=== PATIENT | female | born 1960 | race Caucasian/White ===

== ENCOUNTER 2017-02-06 16:55 | Emergency (ER) | payer OTHER ==
--- NOTE | 2017-02-06 20:40 | ED NURSING NOTES ---
Clinical Report - Nurses [place] [address] [place] [address] 02/06/2017 16:59 Patient: ROSEMARIE ORNELAS TRIAGE Triage time 17:30 Feb 06 2017. Acuity: LEVEL 3. Chief Complaint: RIGHT LOWER EXTREMITY SWELLING and REDNESS. LEFT LOWER EXTREMITY SWELLING and REDNESS. ISACC COMA SCORE: Isacc Coma Scale: 15- eyes open spontaneously (4); best verbal response- oriented x 4 (5); best motor response- obeys commands (6). --17:55 Jessica Euceda R.N. 17:54 02/06/17. BP: 134/76. HR: 93. RR: 20. O2 saturation: 97%. Temp: 98 F. Pain level now 4/10. --17:55 Jessica Euceda R.N. Weight: 79.3 kg stated. Height/Length: 61 inches Per Patient. BMI: 33. --17:53 Jessica Euceda R.N. Medications Estradiol Transdermal. --17:34 Jessica Euceda R.N. DULoxetine HCl Oral. --17:34 Jessica Euceda R.N. Amphetamine-DEXTROAMPHETAMINE Oral. --17:35 Jessica Euceda R.N. Albuterol Sulfate HFA Inhalation. --17:35 Jessica Euceda R.N. MetFORMIN HCl Oral. --17:39 Jessica Euceda R.N. Levothyroxine Sodium Oral. --17:39 Jessica Euceda R.N. Minocycline HCl ER Oral. --17:39 Jessica Euceda R.N. TraZODone HCl Oral. --17:39 Jessica Euceda R.N. Buprenorphine HCl-Naloxone HCl Sublingual. --17:40 Jessica Euceda R.N. Cholecalciferol Oral. --17:40 Jessica Euceda R.N. Calcium & Magnesium Carbonates Oral. --17:40 Jessica Euceda R.N. Polyethylene Glycol 3350 Oral. --17:41 Jessica Euceda R.N. Bisacodyl EC Oral. --17:41 Jessica Euceda R.N. ALPRAZolam Oral. --17:42 Jessica Euceda R.N. Minocycline Hcl Oral. --17:43 Jessica Euceda R.N. Hydroxychloroquine Sulfate Oral. --17:43 Jessica Euceda R.N. Ivermectin Oral. --17:44 Jessica Euceda R.N. Temazepam Oral. --17:44 Jessica Euceda R.N. ValACYclovir HCl Oral. --17:45 Jessica Euceda R.N. Venlafaxine HCl Oral. --17:45 Jessica Euceda R.N. BuPROPion HBr Oral. --17:46 Jessica Euceda R.N. TiZANidine HCl Oral. --17:46 Jessica Euceda R.N. Allergies No Known Drug Allergy. --17:46 Jessica Euceda R.N. History Arrived by private vehicle. Historian: patient. Accompanied by family. No injury occurred. This occurred (2 weeks). ( Patient started taking suboxone 16 mg twice a day two weeks ago and is having confusion, swelling of the legs, falling, headaches, sleep walking, dizziness, hearing noises that are not there.). She has had swelling, redness, fever and trouble walking. No difficulty breathing, skin rash, itching or weakness. PAST MEDICAL HX: Tetanus status: unknown. Immunizations: up-to-date. The patient has had a hysterectomy. SOCIAL HX: Former smoker, end date 1979. Occasional alcohol use. No drug use. SELF HARM ASSESSMENT: A self harm assessment was performed. The patient answered "yes" to the question "Have you recently felt down, depressed, or hopeless?" and "no" to the question "Do you have thoughts of harming or killing yourself?". FALL RISK ASSESSMENT: Fall risk assessment completed. No fall risk identified. NUTRITIONAL RISK ASSESSMENT: The nutritional risk assessment revealed no deficiencies. FUNCTIONAL ASSESSMENT: Functional assessment: no impairments noted. LEARNING NEEDS ASSESSMENT: The learning needs assessment revealed no barriers. ABUSE ASSESSMENT: Abuse assessment: (yes) The patient was asked "Do you feel safe in your home?". SKIN INTEGRITY ASSESSMENT: Skin integrity risk assessment completed. No skin integrity risk identified. --17:55 Jessica Euceda R.N. PROBLEMS: Fibromyalgia. Hepatitis. Tremor. Depression . Grief Reaction. Headache. Fall. Insomnia. Sleep Apnea. Diabetes Mellitus. --17:51 Jessica Euceda R.N. Sleep walking disorder. --19:10 Les Mares R.N. ADDITIONAL SURGERIES: . Foot surgery . Hysterectomy. --17:51 Jessica Euceda R.N. Interventions ID band on patient. --17:55 Jessica Euceda R.N. PHYSICAL ASSESSMENT Ambulatory to room. GENERAL / NEURO / PSYCH: Oriented X 4. Alert. Appears in no acute distress. EXTREMITIES: Non-pitting edema of the lower extremities. Extremity pulses are within normal limits. Extremities exhibit normal ROM. Neuro-vascular status intact to the extremity. Normal gait. Right leg: swelling. Right foot: swelling. Left leg: swelling. Left foot: tenderness and swelling. SKIN: Skin intact. Skin is warm and dry. --17:57 Jessica Euceda R.N. 19:10 02/06/17. BP: 125/66. HR: 96. O2 saturation: 94% on room air. --19:11 Les Mares R.N. NURSING PROGRESS NOTES The initial plan of care for this patient includes an assessment with efforts to address patient positioning and appropriate ambient lighting; impairment of the integumentary system. Pulse oximeter and NIBP monitor placed on patient. Reassurance given. Call light placed in reach. Side rails up x 1. Bed placed in lowest position. --17:58 Jessica Euceda R.N. 18:42 02/06/2017 Site #1 started via IV in the right forearm with an 20g angiocath, with aseptic technique; one attempt. Blood drawn: rainbow set. Labeled in the presence of the patient and sent to the lab. Saline lock flushed with 10 mL saline. --18:42 Jessica Euceda R.N. ( Report received from Jessica Reddy RN). --19:18 Les Mares R.N. Patient gowned. Reassurance given. GENERAL / NEURO / PSYCH: Alert. Oriented X 4. RESPIRATORY: No respiratory distress. SKIN: Skin is warm and dry. Two patient identifiers checked. Call light placed in reach. Side rails up x 1. Bed placed in lowest position. Brakes of bed on. ( Patient has bilateral calf edema and redness. Calm, plesent, conversant and reading a electronic tablet, esl teacher at bedside). --19:32 Les Mares R.N. 19:32 02/06/17. Pain level now: 04/01. --19:32 Les Mares R.N. 20:53 02/06/2017 Started 1 gm of Ceftriaxone IVPB in bag #1 50 mL; at 150 mL/hr over 20 minute(s) via site #1 via IV pump. Allergies verified and confirmed 5 rights. IV patency established. IV site checked: no pain, redness, or swelling. IV flushed thoroughly pre- and post-medication administration. --20:53 Joanne Crabtree R.N. 21:12 02/06/2017 Ceftriaxone IVPB Discontinued: completed. IV patency established. IV site checked: no pain, redness, or swelling. IV flushed thoroughly. --21:12 Les Mares R.N. DISPOSITION / DISCHARGE 21:11 02/06/2017 Site #1 removed upon discharge. Manual pressure and bandaid applied. --21:21 Les Mares R.N. Condition at departure: stable. The goals identified in the patient's plan of care were met. No learning barriers present. Discharge instructions provided and reviewed with the patient and spouse. Reviewed warnings. Reviewed medication(s) side effects, precautions, dosing and course information. Prescription(s) given to the patient. Treatments reviewed. Reviewed referrals for followup. Patient and spouse verbalized understanding. Written instructions provided in [place]an. The patient was discharged home and accompanied by spouse. She left the Emergency Department ambulatory and via private vehicle. Spouse driving. --21:22 Les Mares R.N. 21:19 02/06/17. BP: 135/64. HR: 99. RR: 18 (unlabored). O2 saturation: 95% on room air. Pain level now: 03/02. --21:22 Les Mares R.N. Locked/Released at 02/06/2017 21:23 by Les Mares R.N.
--- NOTE | 2017-02-06 20:40 | ED ORDER SUMMARY ---
..... Patient: ROSEMARIE ORNELAS OrderSheet [facility] VisitID: [id number] [place] [address] 56y, F Registration Date/Time: 02/06/2017 ORDER SHEET Weight: 79.3 kg (stated) Allergies: No Known Drug Allergy GENERAL ORDERS: CBC w Diff Urgent (17:48 02/06/2017 HBivens A.R.N.P.) (Ack 18:29 RKaruga) (19:12 DDavis R.N.) CMP Urgent (17:48 02/06/2017 HBivens A.R.N.P.) (Ack 18:29 RKaruga) (19:12 DDavis R.N.) D-Dimer Urgent (17:48 02/06/2017 HBivens A.R.N.P.) (Ack 18:29 RKaruga) (19:12 DDavis R.N.) Lactate, Serum Urgent (17:48 02/06/2017 HBivens A.R.N.P.) (Ack 18:29 RKaruga) (20:40 IJurca ER Tech1) PCT (Procalcitonin) Urgent (17:48 02/06/2017 HBivens A.R.N.P.) (Ack 18:29 RKaruga) (20:40 IJurca ER Tech1) MEDICATION ORDERS: IV FLUIDS: IV Saline Lock (17:48 02/06/2017 HBivens A.R.N.P.) (18:42 LWhalen R.N.) Ceftriaxone IV 1 gm/50mL (NOW) (20:23 02/06/2017 HBivens A.R.N.P.) (Ack 20:44 MWinterer R.N.) (20:53 MWinterer R.N.) ORDER SHEET NOTES: [Electronically signed by Les Mares R.N. (21:02/06/2017)] [Electronically signed by Adelita DuranR.N.P. (23:02/06/2017)] [Electronically locked/signed by Les Mares R.N. (:02/06/2017)]
--- NOTE | 2017-02-06 20:40 | ED ORDER SUMMARY ---
..... Patient: ROSEMARIE ORNELAS OrderSheet [facility] VisitID: [id number] [place] [address] 56y, F Registration Date/Time: 02/06/2017 ORDER SHEET Weight: 79.3 kg (stated) Allergies: No Known Drug Allergy GENERAL ORDERS: CBC w Diff Urgent (17:48 02/06/2017 HBivens A.R.N.P.) (Ack 18:29 RKaruga) (19:12 DDavis R.N.) CMP Urgent (17:48 02/06/2017 HBivens A.R.N.P.) (Ack 18:29 RKaruga) (19:12 DDavis R.N.) D-Dimer Urgent (17:48 02/06/2017 HBivens A.R.N.P.) (Ack 18:29 RKaruga) (19:12 DDavis R.N.) Lactate, Serum Urgent (17:48 02/06/2017 HBivens A.R.N.P.) (Ack 18:29 RKaruga) (20:40 IJurca ER Tech1) PCT (Procalcitonin) Urgent (17:48 02/06/2017 HBivens A.R.N.P.) (Ack 18:29 RKaruga) (20:40 IJurca ER Tech1) MEDICATION ORDERS: IV FLUIDS: IV Saline Lock (17:48 02/06/2017 HBivens A.R.N.P.) (18:42 LWhalen R.N.) Ceftriaxone IV 1 gm/50mL (NOW) (20:23 02/06/2017 HBivens A.R.N.P.) (Ack 20:44 MWinterer R.N.) (20:53 MWinterer R.N.) ORDER SHEET NOTES: [Electronically signed by Les Mares R.N. (21:02/06/2017)] [Electronically signed by Adelita DuranR.N.P. (23:02/06/2017)] [Electronically locked/signed by Les Mares R.N. (:02/06/2017)]
--- NOTE | 2017-02-06 20:40 | ED CLINICAL REPORT ---
Clinical Report - Physicians/Mid Levels [facility] [address] [place] [address] 02/06/2017 16:59 Patient: ROSEMARIE ORNELAS Time Seen: 1733; upon arrival, initial patient contact, initial documentation, patient care assumed. Arrived- By private vehicle. Historian- patient and spouse. HISTORY OF PRESENT ILLNESS Chief Complaint: LOWER EXTREMITY PAIN and SWELLING. Not relieved by anything- worsened by walking. Severity is described as being severe. The quality is noted to be "pain" and similar to prior episodes. No radiation. This started about 2 weeks ago and is still present. Symptoms located in the area of the right ankle, right leg, right foot, left leg, left foot and left ankle. The patient has had severe redness. No red streaking. She has had new onset of localized moderate swelling of the right lower leg, moderate swelling of the left lower leg, moderate swelling of the right ankle, moderate swelling of the left ankle, moderate swelling of the right foot and moderate swelling of the left foot. She has had difficulty walking. It has been associated with pain in both legs. She has not had difficult ambulation associated with numbness or weakness. No bladder dysfunction, bowel dysfunction, sensory loss or motor loss. ( pt has multiple complaints that may not be related, her #1 concern is her legs, she is afraid her legs might have to be cut off, and she thinks she could be septic from lyme disease that she acquired x4 years ago or that she is having bad side effects from suboxone that she is taking). Patient denies an injury. Similar symptoms previously: Chronically, milder. Recent medical care: The patient was seen recently at this facility in a clinic. ( went to [facility], and was sent here for further eval). REVIEW OF SYSTEMS The patient has had fever and a headache. c/o periods of confusion, falling frequently, because it is hard to walk on the legs, hearing voices. All systems otherwise negative, except as recorded above. PAST HISTORY See nurses notes. ( PROBLEMS: Fibromyalgia. Hepatitis. Tremor. Depression . Grief Reaction. Headache. Fall. Insomnia. Sleep Apnea. Diabetes Mellitus. --17:51 Jessica Euceda R.N. ADDITIONAL SURGERIES: . Foot surgery . Hysterectomy. --17:51 Jessica Euceda R.N.). Recovering substance abuse (hydrocodone and oxycodone). SOCIAL HISTORY Former smoker. Occasional alcohol use. History of drug use: narcotics. Is a recovering addict. No recent travel. Is a local resident. She lives with spouse. FAMILY HISTORY Negative. ADDITIONAL NOTES The nursing notes have been reviewed with agreement regarding the chief complaint, HPI, ROS, PMH and patient medications and allergies. PHYSICAL EXAM Vital Signs: 02/06/2017 17:54 BP: 134/76. HR: 93. RR: 20. O2 saturation: 97%. Temp: 98 F. Have been reviewed as normal and appear to be correct. Appearance: Alert. Oriented X3. No acute distress. Eyes: Pupils equal, round and reactive to light. Eyes normal inspection. Neck: Normal inspection. Neck supple. CVS: Normal heart rate and rhythm. Heart sounds normal. Respiratory: No respiratory distress. Breath sounds normal. Back: Normal inspection. No tenderness. ROM normal. Skin: Skin intact. Skin warm and dry. Normal skin color. Normal skin turgor. Extremities: Right leg: severe erythema and mild tenderness and swelling located in the anterior, posterior, medial and lateral aspect of lower leg. Neurovascular intact distally. (circumferential erythema, warmth, with mild erythema spreading up back of thigh). No laceration, abrasion, ecchymosis, puncture wound or foreign body. No deformity. No limitation of weight bearing. Left leg: severe erythema, mild tenderness and moderate swelling located in the anterior, posterior, medial and lateral aspect of lower leg. Neurovascular intact distally. (circumferential erythema, warmth, with mild erythema). No laceration, abrasion, ecchymosis, puncture wound or foreign body. No deformity. No limitation of weight bearing. Lower extremities do not exhibit normal ROM. Lower extremity edema present. Swelling, warmth, tenderness and erythema present in the right leg, right ankle and right foot and left leg, left ankle and left foot. No purulent drainage, serous drainage, lymphangitis or fluctuance. Extremities otherwise negative. Gait: Abnormal gait. Gait not tested due to pain. Neuro, Vascular and Tendons: No pulse deficit present. Lower extremity capillary refill not prolonged. Neuro: Oriented X 3. No motor deficit. No sensory deficit. LABS, X-RAYS, AND EKG Laboratory Tests: CBC w Diff: (IVAN: 02/06/2017 18:47) ( [facility] 02/06/2017 18:56) Final results Test Result Flag Units (Reference) WHITE BLOOD COUNT 5.2 K/uL (4.5-11.5) RED BLOOD COUNT 4.32 M/uL (4.00-5.20) HEMOGLOBIN 11.7 L gm/dL (12.0-16.0) HEMATOCRIT 35.3 L % (36.0-46.0) MEAN CELL VOLUME 82 fL (80-100) MEAN CORPUSCULAR HGB 27 pg (26-34) MEAN CORPUSCULAR HGB CONC 33 g/dL (31-37) RED CELL DISTRIBUTION WIDTH 12.9 % (11.6-14.8) PLATELET COUNT 221 K/uL (150-400) NEUTROPHIL % 53.2 % (50-75) LYMPH % 32.8 % (25-40) MONO % 10.9 % (3-14) EOSINOPHIL % 2.7 % (0-4) BASOPHIL % 0.4 % (0-2) [id number]: (IVAN: 02/06/2017 18:47) ( [facility] 02/06/2017 19:05) Final results Test Result Flag Units (Reference) D-DIMER QUANTITATIVE 0.79 H ug/mLFEU (0.27-0.52) The primary value of this quantitative assay relates toits negative predictive value (i.e. exclusion) of pulmonaryembolism/deep vein thrombosis/DIC.Elevated levels of d-dimer may also occur with:, age, cancer, inflammation, liver disease,post-op, infection, hematoma, coronary disease, peripheralarteriopathy, bleeding disorders and thrombolytic treatment.Results should be correlated with other clinical andradiological data.Testing Methodology: Latex Immunoassay Lactate, Serum: (IVAN: 02/06/2017 19:10) ( [facility] 02/06/2017 19:43) Final results Test Result Flag Units (Reference) LACTIC ACID 1.4 mmol/L (0.4-2.0) [id number]: (IVAN: 02/06/2017 18:47) ( MsgRcvd 02/06/2017 19:43) Final results Test Result Flag Units (Reference) PROCALCITONIN <0.5 ng/mL (0-0.5) PCT Concentration: Interpretation : Risk/option for action PCT <=0.5 ng/mL : Systemic : Low risk forinfection(sepsis): progression to severeis not likely. : systemic infection.Local bacterial : CAUTION-PCT levelsinfection is : below 0.5 ng/mL do notpossible. : exclude an infection,because localizedinfections (withoutsystemic signs) may beassociated with suchlow levels. If PCT ismeasured very earlyafter a bacterialchallenge (usually <6hours), these valuesmay still be low. Inthis case PCT shouldbe re-assessed 6-24hours later. PCT >0.5 and : Systemic infection: Moderate risk for<= 2 ng/mL : (sepsis) is : progression to severepossible, but : systemic infection.other conditions : The patient should beare known to : closely monitoredelevate PCT. : both clinically andby re-assessing PCTwithin 6-24 hours. PCT > 2 ng/mL : Systemic infection: High risk for(sepsis) is likely: progression to severeunless other : systemic infection.causes are known. : PCT >= 10 ng/mL : Important systemic: High likelihood ofinflammatory : severe sepsis orresponse, almost : septic shock.exclusively due to:severe bacterial :sepsis or septic :shock. : CMP: (IVAN: 02/06/2017 18:47) ( MsgRcvd 02/06/2017 19:14) Final results Test Result Flag Units (Reference) GLUCOSE 158 H mg/dL (70-110) BUN 14 mg/dL (7-18) CREATININE 0.8 mg/dL (0.6-1.3) Estimated GFR >60 mL/min Estimated GFR- >60 mL/min Note: Persistent reduction over 3 months in eGFR<60 mL/min/1.73 m2 defines CKD. Patients with eGFR values>=60 mL/min/1.73 m2 may also have CKD if evidence ofpersistent proteinuria. Additional information may be foundat www.kidney.org. SODIUM 141 mmol/L (136-145) POTASSIUM 3.9 mmol/L (3.5-5.1) CHLORIDE 102 mmol/L (98-107) CARBON DIOXIDE 32 mmol/L (21-32) CALCIUM 8.9 mg/dL (8.5-10.1) TOTAL PROTEIN 6.6 g/dL (6.4-8.2) ALBUMIN 3.1 L g/dL (3.3-5.0) BILIRUBIN, TOTAL 0.4 mg/dL (0.0-1.0) ALKALINE PHOSPHATASE 75 U/L (46-116) AST (SGOT) 65 H U/L (15-37) ALT (SGPT) 61 U/L (12-78) . PROGRESS AND PROCEDURES Course of Care: 17:49 02/06/17. pt has nicolás for frequent narcs, including suboxone, see report for full details 2020. differential dx discussed and risk of blood clots and doing us, pt agreed to trying abx, since legs are like they were before in past with infection, and f/u with pcp in 2 days, denies any cp, sob, risk factor for pe or clots, and no hx of clotting issues. Patient and spouse counseled in person regarding the patient's stable condition, test results and diagnosis. 20:21. Differential Diagnosis: Other possible considerations: cellulitis, substance abuse, dvt, arterial clot, gout. Above considerations are based on history, physical exam and laboratory data. Differential diagnosis was discussed with patient and patient's spouse. Disposition: Discharged home in good and unchanged condition (20:23). Condition: good and stable. CLINICAL IMPRESSION Cellulitis of the right lower leg and left lower leg. INSTRUCTIONS Warnings: GENERAL WARNINGS: Return or contact your physician immediately if your condition worsens or changes unexpectedly, if not improving as expected, or if other problems arise. Specifically return if problem worsens. Prescription Medications: Cephalexin 500 mg: take 1 capsule orally every 12 hours for 10 days. No refill. Bactrim DS: take 1 tablet orally every 12 hours for 10 days. No refill. Substitution is not permissible. Motrin 800 mg tablets: take 1 tablet orally every 8 hours as needed for pain. Dispense thirty (30). No refills. Substitution is permissible. Follow-up: Follow up with your doctor in two days even if well. Call for an appointment. Summary of care provided to patient. Understanding of the discharge instructions verbalized by patient. (Electronically signed by Adelita Duran A.R.N.P. 02/06/2017 23:03)
--- NOTE | 2017-02-06 23:04 | ED MAR SUMMARY ---
..... Medication Administration Record [facility] [address] [place] [address] Patient: ROSEMARIE ORNELAS Visit ID: [id number] 56y, F Weight: 79.3 kg Height/Length: 61 in BMI: 33 ALLERGIES: No Known Drug Allergy Start 20:53 02/06/2017 Joanne Crabtree R.N., Stop 21:12 02/06/2017 Les Mares R.N. Medication Administered: CEFTRIAXONE [IVPB], Dose: 1 gm IVPB over 20 minute(s), Rate: 150 mL/hr, Dispensed: 50 mL bag, Site: #1 right forearm. Medication Ordered: Ceftriaxone IV 1 gm/50mL (NOW).
--- NOTE | 2017-02-06 23:04 | ED MED RECONCILIATION SUMMARY ---
Patient: ROSEMARIE ORNELAS Medication Reconciliation Report [facility]erg[facility] VisitID: [id number] [place] [address] 56y, F Registration Date/Time: 02/06/2017 Weight: 79.3 kg Height/Length: 61 in. BMI: 33.0 ALLERGIES: No Known Drug Allergy The patient's Home Medications are listed below: THE FOLLOWING MEDICATIONS NEED TO BE RECONCILED: Albuterol Sulfate HFA Inhalation ALPRAZolam Oral Amphetamine-DEXTROAMPHETAMINE Oral Bisacodyl EC Oral Buprenorphine HCl-Naloxone HCl Sublingual BuPROPion HBr Oral Calcium & Magnesium Carbonates Oral Cholecalciferol Oral DULoxetine HCl Oral Estradiol Transdermal Hydroxychloroquine Sulfate Oral Ivermectin Oral Levothyroxine Sodium Oral MetFORMIN HCl Oral Minocycline HCl ER Oral Minocycline Hcl Oral Polyethylene Glycol 3350 Oral Temazepam Oral TiZANidine HCl Oral TraZODone HCl Oral ValACYclovir HCl Oral Venlafaxine HCl Oral The source(s) of the original Home Medication information: Not obtained. The following Medications were given to the patient in the Emergency Department: Ceftriaxone [IVPB] IVPB bolus 0, then 1 gm 150 mL/hr, administered: 02/06/2017 8:53:00 PM The following Medications were prescribed to the patient: Cephalexin 500 mg: take 1 capsule orally every 12 hours for 10 days. No refill. -- Adelita Duran A.R.N.P. Bactrim DS: take 1 tablet orally every 12 hours for 10 days. No refill. Substitution is not permissible. -- Adelita Duran A.R.N.P. Motrin 800 mg tablets: take 1 tablet orally every 8 hours as needed for pain. Dispense thirty (30). No refills. Substitution is permissible. -- Adelita Duran A.R.N.P.
--- NOTE | 2017-02-06 23:04 | ED MED RECONCILIATION SUMMARY ---
Patient: ROSEMARIE ORNELAS Medication Reconciliation Report [facility] VisitID: [id number] [place] [address] 56y, F Registration Date/Time: 02/06/2017 Weight: 79.3 kg Height/Length: 61 in. BMI: 33.0 ALLERGIES: No Known Drug Allergy The patient's Home Medications are listed below: THE FOLLOWING MEDICATIONS NEED TO BE RECONCILED: Albuterol Sulfate HFA Inhalation ALPRAZolam Oral Amphetamine-DEXTROAMPHETAMINE Oral Bisacodyl EC Oral Buprenorphine HCl-Naloxone HCl Sublingual BuPROPion HBr Oral Calcium & Magnesium Carbonates Oral Cholecalciferol Oral DULoxetine HCl Oral Estradiol Transdermal Hydroxychloroquine Sulfate Oral Ivermectin Oral Levothyroxine Sodium Oral MetFORMIN HCl Oral Minocycline HCl ER Oral Minocycline Hcl Oral Polyethylene Glycol 3350 Oral Temazepam Oral TiZANidine HCl Oral TraZODone HCl Oral ValACYclovir HCl Oral Venlafaxine HCl Oral The source(s) of the original Home Medication information: Not obtained. The following Medications were given to the patient in the Emergency Department: Ceftriaxone [IVPB] IVPB bolus 0, then 1 gm 150 mL/hr, administered: 02/06/2017 8:53:00 PM The following Medications were prescribed to the patient: Cephalexin 500 mg: take 1 capsule orally every 12 hours for 10 days. No refill. -- Adelita Duran A.R.N.P. Bactrim DS: take 1 tablet orally every 12 hours for 10 days. No refill. Substitution is not permissible. -- Adelita Duran A.R.N.P. Motrin 800 mg tablets: take 1 tablet orally every 8 hours as needed for pain. Dispense thirty (30). No refills. Substitution is permissible. -- Adelita Duran A.R.N.P.
--- NOTE | 2017-02-06 23:04 | ED DISCHARGE INSTRUCTIONS ---
Patient: ROSEMARIE ORNELAS General Instructions [facility] VisitID: [id number] [place] [address] 56y, F Registration Date/Time: 02/06/2017 Cellulitis of the right lower leg and left lower leg. INSTRUCTIONS Warnings: GENERAL WARNINGS: Return or contact your physician immediately if your condition worsens or changes unexpectedly, if not improving as expected, or if other problems arise. Specifically return if problem worsens. Prescription Medications: Cephalexin 500 mg: take 1 capsule orally every 12 hours for 10 days. No refill. Bactrim DS: take 1 tablet orally every 12 hours for 10 days. No refill. Substitution is not permissible. Motrin 800 mg tablets: take 1 tablet orally every 8 hours as needed for pain. Dispense thirty (30). No refills. Substitution is permissible. Follow-up: Follow up with your doctor in two days even if well. Call for an appointment. Summary of care provided to patient. Understanding of the discharge instructions verbalized by patient. ADDITIONAL INFORMATION Cellulitis You have an infection of the skin known as cellulitis. This usually starts with a scrape, cut, insect bite, blister or other opening in the skin which becomes infected. This is a serious condition. It must be watched closely to be sure the infection is not spreading. With antibiotic treatment, the size of the red area will gradually shrink in size until the skin returns to normal. This will take 7-10 days. The red area should never increase in size once the antibiotic medicine has been started. Occasionally, an infection will be resistant to one antibiotic and another one will have to be used. Home Care: 1) Limit the use of the affected part, since excess movement can cause the infection to spread. 2) If the infection is on your leg, walk as little as possible during the first few days of the treatment. Keep your leg elevated while sitting. This will reduce swelling. 3) Take all of the antibiotic medicine exactly as directed until it is gone. Be careful not to miss any doses, especially during the first seven days. Follow Up with your doctor or this facility as directed. Check the infected area daily for the warning signs listed below. Get Prompt Medical Attention if any of the following occur: -- Spreading area of redness -- Increasing swelling or pain -- Appearance of pus or drainage -- Fever over 100.4 F (38.0 C) oral, or over 101.4 F (38.6 C) rectal, after two days on antibiotics Staph Infection (MRSA) "Staph" is the short name for the common bacteria called "staphylococcus aureus". Staph bacteria are often present on the skin without causing an infection. If it gets under the skin an infection occurs. This causes redness, tenderness, swelling and sometimes fluid drainage. MRSA stands for "Methicillin-Resistant Staph Aureus". Unlike a common staph infection, MRSA bacteria are resistant to the usual antibiotics and harder to treat. Also, MRSA is more toxic than common staph bacteria. It can spread quickly throughout the body and cause a life-threatening illness. MRSA is spread to others by direct physical contact with the bacteria. MRSA can also be transmitted from items contaminated by a person who has the bacteria, such as bandages, towels, bed sheets, or sports equipment. It is not spread through the air. Once you have a MRSA skin infection, you are at risk of having it recur in the future. If MRSA infection is suspected, the doctor may take a wound culture to confirm the diagnosis. Any abscess will be drained. One or sometimes two antibiotics that work against MRSA will be prescribed. Home Care: 1) Take any antibiotics prescribed exactly as directed until they are gone. 2) Follow the same washing procedures as outlined for Household Members below. 3) Keep draining wounds covered with clean, dry bandages. Change dressings as they become soiled. 4) You and those in contact with you should wash their hands frequently with soap and warm water or use an alcohol-based hand claim analyst. Do this after each time you change the bandage or touch the wound. 5) Avoid sharing personal items such as towels, washcloths, razors, clothing, or uniforms. Wash soiled sheets, towels or clothes in hot water with laundry detergent. Use an automatic clothes dryer set on high to kill any remaining bacteria. 6) Remove any artificial nails and nail romanian. 7) If you use a gym, wipe down equipment before and after each use. Treatment Of Household Members If you have been diagnosed with possible MRSA infection, those living with you are at higher risk of carrying the bacteria on their skin or in their nose, even if there is no sign of infection. Bacteria must be removed from the skin of all household members (including you) at the same time, so that it is not passed back and forth. Advise them to remove the bacteria as follows: Wash your whole body (scalp to toes) daily for five days with Hibiclens (chlorhexidine). Scrub fingernails with a brush for one minute twice a day. If any skin infections are present (boils, abscess, infected cut) these must be treated by a doctor. Washing alone will not treat a MRSA infection. Clean counter tops and children's toys; do not share personal items such as toothbrush and razors. It is okay to share glasses, plates, utensils. If antibiotic ointment was prescribed use it as directed. Follow Up with your doctor or as advised by our staff. If a wound culture was taken, call as directed in two days to obtain the results. If the culture result is positive for MRSA, tell medical personnel in the future that you were treated for this type of infection. Get Prompt Medical Attention if any of the following occur: -- Increasing redness, swelling or pain -- Red streaks in the skin around the wound -- Weakness or dizziness -- New appearance of pus or drainage from the wound -- New fever over 100.4 F (38.0 C) Cephalexin Monohydrate Oral tablet What is this medicine? CEPHALEXIN (sef a SARA in) is a cephalosporin antibiotic. It is used to treat certain kinds of bacterial infections It will not work for colds, flu, or other viral infections. How should I use this medicine? Take this medicine by mouth with a full glass of water. Follow the directions on the prescription label. This medicine can be taken with or without food. Take your medicine at regular intervals. Do not take your medicine more often than directed. Take all of your medicine as directed even if you think you are better. Do not skip doses or stop your medicine early. Talk to your printing and stamping supervisor regarding the use of this medicine in children. While this drug may be prescribed for selected conditions, precautions do apply. What side effects may I notice from receiving this medicine? Side effects that you should report to your doctor or health youth career specialist as soon as possible: allergic reactions like skin rash, itching or hives, swelling of the face, lips, or tongue breathing problems pain or trouble passing urine redness, blistering, peeling or loosening of the skin, including inside the mouth severe or watery diarrhea unusually weak or tired yellowing of the eyes, skin Side effects that usually do not require medical attention (report to your doctor or health youth career specialist if they continue or are bothersome): gas or heartburn genital or anal irritation headache joint or muscle pain nausea, vomiting What may interact with this medicine? probenecid some other antibiotics What if I miss a dose? If you miss a dose, take it as soon as you can. If it is almost time for your next dose, take only that dose. Do not take double or extra doses. There should be at least 4 to 6 hours between doses. Where should I keep my medicine? Keep out of the reach of children. Store at room temperature between 59 and 86 degrees F (15 and 30 degrees C). Throw away any unused medicine after the expiration date. What should I tell my health care provider before I take this medicine? They need to know if you have any of these conditions: kidney disease stomach or intestine problems, especially colitis an unusual or allergic reaction to cephalexin, other cephalosporins, penicillins, other antibiotics, medicines, foods, dyes or preservatives or trying to get breast-feeding What should I watch for while using this medicine? Tell your doctor or health youth career specialist if your symptoms do not begin to improve in a few days. Do not treat diarrhea with over the counter products. Contact your doctor if you have diarrhea that lasts more than 2 days or if it is severe and watery. If you have diabetes, you may get a false-positive result for sugar in your urine. Check with your doctor or health youth career specialist. Sulfamethoxazole, Trimethoprim Oral tablet What is this medicine? SULFAMETHOXAZOLE; TRIMETHOPRIM or SMX-TMP (suhl fuh meth OK mary zohl; trye METH oh prim) is a combination of a sulfonamide antibiotic and a second antibiotic, trimethoprim. It is used to treat or prevent certain kinds of bacterial infections. It will not work for colds, flu, or other viral infections. How should I use this medicine? Take this medicine by mouth with a full glass of water. Follow the directions on the prescription label. Take your medicine at regular intervals. Do not take it more often than directed. Do not skip doses or stop your medicine early. Talk to your printing and stamping supervisor regarding the use of this medicine in children. Special care may be needed. This medicine has been used in children as young as 2 months of age. What side effects may I notice from receiving this medicine? Side effects that you should report to your doctor or health youth career specialist as soon as possible: allergic reactions like skin rash or hives, swelling of the face, lips, or tongue breathing problems fever or chills, sore throat irregular heartbeat, chest pain joint or muscle pain pain or difficulty passing urine red pinpoint spots on skin redness, blistering, peeling or loosening of the skin, including inside the mouth unusual bleeding or bruising unusually weak or tired yellowing of the eyes or skin Side effects that usually do not require medical attention (report to your doctor or health youth career specialist if they continue or are bothersome): diarrhea dizziness headache loss of appetite nausea, vomiting nervousness What may interact with this medicine? Do not take this medicine with any of the following medications: aminobenzoate potassium dofetilide metronidazole This medicine may also interact with the following medications: WES inhibitors like benazepril, enalapril, lisinopril, and ramipril cyclosporine digoxin diuretics indomethacin medicines for diabetes methenamine methotrexate phenytoin potassium supplements pyrimethamine sulfinpyrazone tricyclic antidepressants warfarin What if I miss a dose? If you miss a dose, take it as soon as you can. If it is almost time for your next dose, take only that dose. Do not take double or extra doses. Where should I keep my medicine? Keep out of the reach of children. Store at room temperature between 20 to 25 degrees C (68 to 77 degrees F). Protect from light. Throw away any unused medicine after the expiration date. What should I tell my health care provider before I take this medicine? They need to know if you have any of these conditions: anemia asthma being treated with anticonvulsants if you frequently drink alcohol containing drinks kidney disease liver disease low level of folic acid or [id number] dehydrogenase poor nutrition or malabsorption porphyria severe allergies thyroid disorder an unusual or allergic reaction to sulfamethoxazole, trimethoprim, sulfa drugs, other medicines, foods, dyes, or preservatives or trying to get breast-feeding What should I watch for while using this medicine? Tell your doctor or health youth career specialist if your symptoms do not improve. Drink several glasses of water a day to reduce the risk of kidney problems. Do not treat diarrhea with over the counter products. Contact your doctor if you have diarrhea that lasts more than 2 days or if it is severe and watery. This medicine can make you more sensitive to the sun. Keep out of the sun. If you cannot avoid being in the sun, wear protective clothing and use a sunscreen. Do not use sun lamps or tanning beds/booths. Ibuprofen Oral tablet What is this medicine? IBUPROFEN (eye BYOO proe fen) is a non-steroidal anti-inflammatory drug (NSAID). It is used for dental pain, fever, headaches or migraines, osteoarthritis, rheumatoid arthritis, or painful monthly periods. It can also relieve minor aches and pains caused by a cold, flu, or sore throat. How should I use this medicine? Take this medicine by mouth with a glass of water. Follow the directions on the prescription label. Take this medicine with food if your stomach gets upset. Try to not lie down for at least 10 minutes after you take the medicine. Take your medicine at regular intervals. Do not take your medicine more often than directed. A special MedGuide will be given to you by the pharmacist with each prescription and refill. Be sure to read this information carefully each time. Talk to your printing and stamping supervisor regarding the use of this medicine in children. Special care may be needed. What side effects may I notice from receiving this medicine? Side effects that you should report to your doctor or health youth career specialist as soon as possible: allergic reactions like skin rash, itching or hives, swelling of the face, lips, or tongue black or bloody stools, blood in the urine or in vomit breathing problems changes in vision chest pain general ill feeling or flu-like symptoms nausea or vomiting redness, blistering, peeling or loosening of the skin, including inside the mouth slurred speech or weakness on one side of the body stomach pain unexplained weight gain or swelling unusually weak or tired yellowing of eyes or skin Side effects that usually do not require medical attention (report to your doctor or health youth career specialist if they continue or are bothersome): constipation or diarrhea dizziness gas or heartburn stomach upset What may interact with this medicine? Do not take this medicine with any of the following medications: cidofovir ketorolac methotrexate pemetrexed This medicine may also interact with the following medications: alcohol aspirin diuretics lithium other drugs for inflammation like prednisone warfarin What if I miss a dose? If you miss a dose, take it as soon as you can. If it is almost time for your next dose, take only that dose. Do not take double or extra doses. Where should I keep my medicine? Keep out of the reach of children. Store at room temperature between 15 and 30 degrees C (59 and 86 degrees F). Keep container tightly closed. Throw away any unused medicine after the expiration date. What should I tell my health care provider before I take this medicine? They need to know if you have any of these conditions: asthma cigarette smoker drink more than 3 alcohol containing drinks a day heart disease or circulation problems such as heart failure or leg edema (fluid retention) high blood pressure kidney disease liver disease stomach bleeding or ulcers an unusual or allergic reaction to ibuprofen, aspirin, other NSAIDS, other medicines, foods, dyes, or preservatives or trying to get breast-feeding What should I watch for while using this medicine? Tell your doctor or healthcare professional if your symptoms do not start to get better or if they get worse. This medicine does not prevent heart attack or stroke. In fact, this medicine may increase the chance of a heart attack or stroke. The chance may increase with longer use of this medicine and in people who have heart disease. If you take aspirin to prevent heart attack or stroke, talk with your doctor or health youth career specialist. Do not take other medicines that contain aspirin, ibuprofen, or naproxen with this medicine. Side effects such as stomach upset, nausea, or ulcers may be more likely to occur. Many medicines available without a prescription should not be taken with this medicine. This medicine can cause ulcers and bleeding in the stomach and intestines at any time during treatment. Ulcers and bleeding can happen without warning symptoms and can cause . To reduce your risk, do not smoke cigarettes or drink alcohol while you are taking this medicine. You may get drowsy or dizzy. Do not drive, use machinery, or do anything that needs mental alertness until you know how this medicine affects you. Do not stand or sit up quickly, especially if you are an older patient. This reduces the risk of dizzy or fainting spells. This medicine can cause you to bleed more easily. Try to avoid damage to your teeth and gums when you brush or floss your teeth. You have been given the following additional information: Cellulitis MRSA Skin Infection, Suspected Or Confirmed Cephalexin Monohydrate Oral tablet Sulfamethoxazole, Trimethoprim Oral tablet Ibuprofen Oral tablet (Electronically signed by Adelita Duran A.R.N.P. 02/06/2017 23:03)
--- NOTE | 2017-02-06 23:04 | ED MAR SUMMARY ---
..... Medication Administration Record [facility] [address] [place] [address] Patient: ROSEMARIE ORNELAS Visit ID: [id number] 56y, F Weight: 79.3 kg Height/Length: 61 in BMI: 33 ALLERGIES: No Known Drug Allergy Start 20:53 02/06/2017 Joanne Crabtree R.N., Stop 21:12 02/06/2017 Les Mares R.N. Medication Administered: CEFTRIAXONE [IVPB], Dose: 1 gm IVPB over 20 minute(s), Rate: 150 mL/hr, Dispensed: 50 mL bag, Site: #1 right forearm. Medication Ordered: Ceftriaxone IV 1 gm/50mL (NOW).
== END 2017-02-06 21:22 | disposition home or self-care (01) ==
LOC: ED SRH 16:55
DX: L03.115 Cellulitis of right lower limb (principal); L03.116 Cellulitis of left lower limb; E11.9 Type 2 diabetes mellitus without complications; Z87.891 Personal history of nicotine dependence; Z79.899 Other long term (current) drug therapy; Z79.84 Long term (current) use of oral hypoglycemic drugs
CPT/HCPCS: 90074; 90100; 91556; 92031; 93004; 95059

== ENCOUNTER 2017-02-10 14:56 | Observation (INO) | payer OTHER ==
[~2017-02-10] VITALS: Ht 154.9 cm; Wt 82.5 kg
--- NOTE | 2017-02-10 15:56 | DIAGNOSTIC IMAGING REPORT ---
PROCEDURE: XR CHEST 2 VIEW INDICATION: FATIGUE TECHNIQUE: PA and lateral views. COMPARISON: None. FINDINGS: Lungs are clear. Heart and mediastinum are normal. Thorax is normal. IMPRESSION: 1. Negative chest.
--- NOTE | 2017-02-10 16:54 | DIAGNOSTIC IMAGING REPORT ---
PROCEDURE: US VENOUS - BILATERAL EXT INDICATION: SWELLING TECHNIQUE: Duplex sonography of the deep venous system in both lower extremities was performed. Compression and augmentation techniques were used. COMPARISON: None. FINDINGS: Each interrogated segment of deep vein from the common femoral vein into the calf veins demonstrates normal compressibility, augmentation and/or color Doppler flow without filling defect. Mild right lower extremity subcutaneous edema. No evidence of soft-tissue mass or cyst. IMPRESSION: 1. No deep venous thrombosis in either lower extremity.
--- NOTE | 2017-02-10 16:57 | ED ORDER SUMMARY ---
..... Patient: ROSEMARIE ORNELSA OrderSheet [facility] VisitID: [id number] [place] [address] 56y, F Registration Date/Time: 02/10/2017 ORDER SHEET Weight: 79.3 kg (stated) Allergies: No Known Drug Allergy GENERAL ORDERS: Chest 2V Urgent (15:02/10/2017 PHutchinson DO) (Ack 15:30 KHoerner) (17:20 KWilliams R.N.) Ordnance Handler (Continuous) (15:02/10/2017 PHutchinson DO) (17:19 KWilliams R.N.) UA-Culture if indicated Urgent (15:02/10/2017 PHutchinson DO) (Ack 15:30 KHoerner) (17:20 KWilliams R.N.) Cardiac Panel Stat (:02/10/2017 PHutchinson DO) (Ack 15:30 KHoerner) (15:51 JRomanelli R.N.) BNP Urgent (15:02/10/2017 PHutchinson DO) (Ack 15:30 KHoerner) (15:51 JRomanelli R.N.) D-Dimer Urgent (15:02/10/2017 PHutchinson DO) (Ack 15:30 KHoerner) (15:51 JRomanelli R.N.) Amylase Urgent (15:02/10/2017 PHutchinson DO) (Ack 15:30 KHoerner) (15:51 JRomanelli R.N.) Pulse oximeter (15:02/10/2017 PHutchinson DO) (17:20 KWilliams R.N.) EKG - ER Stat (15:02/10/2017 PHutchinson DO) (Ack 15:30 KHoerner) (15:45 LNations ER Tech1) Vitals (15:02/10/2017 PHutchinson DO) (17:07 KWilliams R.N.) Lactate, Serum Urgent (15:02/10/2017 PHutchinson DO) (Ack 15:30 KHoerner) (15:51 JRomanelli R.N.) PCT (Procalcitonin) Urgent (15:29 02/10/2017 PHutchinson DO) (Ack 15:30 KHoerner) (15:51 omanelli R.N.) Urine Drug Screen Urgent (15:29 02/10/2017 PHutchinson DO) (Ack 15:47 KHoerner) (17:20 KWilliams R.N.) US Venous Bilat Urgent (15:38 02/10/2017 PHutchinson DO) (Ack 15:47 KHoerner) (16:34 KHoerner) Call (Place call to): (Dr Ren) (16:44 02/10/2017 PHutchinson DO) (Ack 16:45 KHoerner) (17:03 KHoerner) TSH Urgent (17:30 02/10/2017 PHutchinson DO) (Ack 17:33 LNations ER Tech1) (17:34 KWilliams R.N.) MEDICATION ORDERS: IV FLUIDS: IV Saline Lock (15:28 02/10/2017 PHlachinson DO) (15:51 Martine R.N.) IV NS with Normal Saline 1 Liter: initial bolus 1000 mL (1000 mL/hr), then 500 mL/hr for X2 (NOW) (15:29 02/10/2017 PHlachinson DO) (17:21 KWilliams R.N.) Vancomycin IV 2 gm/500 mL (NOW) (16:16 [facility]2017 [facility] (17:33 KWilliams R.N.) ORDER SHEET NOTES: [Electronically signed by Elgin Wallis R.N. (19:20 02/10/2017)] [Electronically signed by Andres Mora DO (21:53 02/10/2017)] [Electronically locked/signed by Elgin Wallis R.N. (19:20 02/10/2017)]
--- NOTE | 2017-02-10 16:57 | ED NURSING NOTES ---
Clinical Report - [facility] [address] [place] [address] 02/10/2017 14:57 Patient: ROSEMARIE ORNELAS TRIAGE Triage time 15:05 Feb 10 2017. Acuity: LEVEL 3. Chief Complaint: RIGHT LOWER EXTREMITY PAIN, SWELLING and REDNESS. Alert. ZAK COMA SCORE: [place] Coma Scale: 15- eyes open spontaneously (4); best verbal response- oriented x 4 (5); best motor response- obeys commands (6). --15:24 Elgin Wallis R.N. 15:09 02/10/17. BP: 131/56. HR: 98. RR: 16. O2 saturation: 96%. Temp: 98.8 F. Pain level now: 5/10. Additional comments: Leg pain. --15:24 Elgin Wallis R.N. Weight: 79.3 kg stated. Height/Length: 61 inches Per Patient. BMI: 33. --15:20 Elgin Wallis R.N. Medications Albuterol Sulfate HFA Inhalation. Amphetamine-DEXTROAMPHETAMINE Oral. Bisacodyl EC Oral. Buprenorphine HCl-Naloxone HCl Sublingual. Calcium & Magnesium Carbonates Oral. Cholecalciferol Oral. Estradiol Transdermal. Levothyroxine Sodium Oral. MetFORMIN HCl Oral. Minocycline HCl ER Oral. --15:18 Elgin Wallis R.N. Polyethylene Glycol 3350 Oral. Venlafaxine HCl Oral. --15:18 Elgin Wallis R.N. Bactrim DS Oral 1 tablet, 2x a day. --15:52 Elgin Wallis R.N. Keflex Oral 500 mg x 2, 2x a day. --15:53 Elgin Wallis R.N. Allergies No Known Drug Allergy. --15:18 Elgin Wallis R.N. History Arrived by private vehicle. Historian: patient. Accompanied by spouse. Primary physician (Levi Tena). ( Biat Leg Pain. Pt states that she is being treated for Lyme's' Disease and recencetly was treated with a course of antibiotics.). No injury occurred. This occurred (about 17 years ago--got bitten with a tick in [facility]). She has had swelling, redness and trouble walking. PAST MEDICAL HX: Type II diabetes mellitus treated with oral medication. Peripheral neuropathy. Tetanus status: unknown. Immunizations: status is unknown. The patient is post-menopausal. SOCIAL HX: Never smoker. No alcohol use. Infectious disease exposure. (Lyme's Disease). ABUSE ASSESSMENT: No report of abuse. FALL RISK ASSESSMENT: Fall risk assessment completed. No fall risk identified. NUTRITIONAL RISK ASSESSMENT: The nutritional risk assessment revealed no deficiencies. FUNCTIONAL ASSESSMENT: Functional assessment: no impairments noted. LEARNING NEEDS ASSESSMENT: The learning needs assessment revealed no barriers. SKIN INTEGRITY ASSESSMENT: Skin integrity risk assessment completed. No skin integrity risk identified. --15:24 Elgin Wallis R.N. PROBLEMS: Cellulitis. Sleep walking disorder. Substance Abuse. Fibromyalgia. Hepatitis. Depression . Grief Reaction. Headache. Insomnia. Sleep Apnea. Diabetes Mellitus. --15:18 Elgin Wallis R.N. ADDITIONAL SURGERIES: . Cystocele/Rectocele Repair. Foot surgery . Hysterectomy. --15:18 Elgin Wallis R.N. Interventions ID band on patient. To treatment room. --15:24 Elgin Wallis R.N. PHYSICAL ASSESSMENT Ambulatory to room. GENERAL / NEURO / PSYCH: Oriented X 4. EXTREMITIES: Extremity pulses are within normal limits. Extremities exhibit normal ROM. No lower extremity edema. Normal gait. Right leg. Left leg: tenderness, swelling and erythema. SKIN: Skin intact. Skin is warm and dry. --15:52 Elgin Wallis R.N. EXTREMITIES: ( Murmur RSB and LSB 2 ICS's). --16:08 Elgin Wallis R.N. NURSING PROGRESS NOTES Patient gowned. Reassurance given. Patient identifiers checked. Call light placed in reach. Side rails up x 1. Bed placed in lowest position. Brakes of bed on. Patient ready for evaluation- chart flagged and ED physician notified. --15:25 Elgin Wallis R.N. 15:40 02/10/2017 Site #1 started via IV in the left hand with an 20g angiocath, with aseptic technique and good blood return; one attempt. Blood drawn: rainbow set. Labeled in the presence of the patient and sent to the lab. Saline lock flushed with 10 mL saline. --15:51 Elgin Wallis R.N. Patient transported to radiology by stretcher with tech. --15:52 Elgin Wallis R.N. Patient returned. (16:00 Feb 10 2017). --16:06 Elgin Wallis R.N. 15:45 02/10/2017 Started bag #1 1000 mL IV Fluids IV NS (Saline); at 999 mL/hr over 1 hour(s) via site #1. Allergies verified and confirmed 5 rights. IV patency established. IV site checked: no pain, redness, or swelling. IV flushed thoroughly pre- and post-medication administration. Completed per protocol. --17:21 Katrin Coknlin R.N. 16:07 02/10/17. ( seed laboratory technician in room doing procedure). --16:07 Elgin Wallis R.N. EKG time: (6682). EKG was ordered, performed by a tech and shown to the ED physician. --16:16 Sakina Oconnor ER Tech1 17:00 02/10/17. Assisted patient to bathroom, to sit up, to stand, to ambulate and back to bed; tolerated well. --17:00 Katrin Conklin R.N. 17:18 02/10/17. BP: 123/69. HR: 93. RR: 14. O2 saturation: 96% on room air. --17:19 Katrin Conklin R.N. 17:15 02/10/2017 IV Fluids IV NS Bag Change: bag #1 infused. Total amount infused: 1000. STARTED bag #2 (1000 mL) at 500 mL/hr via IV pump. Confirmed 5 rights. IV patency established. IV site checked: no pain, redness, or swelling. IV flushed thoroughly. --17:25 Katrin Conklin R.N. 17:19 02/10/17. Cardiac rhythm: normal sinus rhythm. cuffing machine operator, pulse oximeter and NIBP monitor placed on patient. Patient ID band checked for patient name and birthdate: patient confirmed. Instructions provided to collect clean catch urine and patient verbalized understanding. Clean catch urine collected with return of angella-colored clear urine; odor is normal; sample sent to lab for urinalysis and culture. Specimen labeled in the presence of the patient. ( updated pt on plan of care). --17:19 aKtrin Conklin R.N. 17:23 02/10/2017 Started 2 gm of Vancomycin IVPB in bag #1 500 mL; at 270 mL/hr over 2 hour(s) via site #1 via IV pump. Allergies verified and confirmed 5 rights. IV patency established. IV site checked: no pain, redness, or swelling. IV flushed thoroughly pre- and post-medication administration. Completed per protocol. --17:33 Katrin Conklin R.N. DISPOSITION / DISCHARGE 18:10 02/10/17. BP: 108/53. HR: 99. RR: 14. O2 saturation: 97% on room air. Temp: 98.8 F. Pain level now: 03/02. --19:17 Elgin Wallis R.N. Departure time: 1814. --19:17 Elgin Wallis R.N. 18:15. Condition at departure: improved. Admitted to Acute Care. Transported via stretcher by transport team with IV. Report was given to a nurse via a phone call. Report included patient's care, treatment, medications, reviewed medication reconcilliation, and condition (including any recent changes or anticipated changes). All questions were answered. Report was acknowledged and care was transferred. (SANTANA Tejeda). Patient's personal items; items were placed in belongings bag and transported with the patient. --19:20 Elgin Wallis R.N. Locked/Released at 02/10/2017 19:20 by Elgin Wallis R.N.
--- NOTE | 2017-02-10 16:57 | ED NURSING NOTES ---
Clinical Report - [facility] [address] [place] [address] 02/10/2017 14:57 Patient: ROSEMARIE ORNELAS TRIAGE Triage time 15:05 Feb 10 2017. Acuity: LEVEL 3. Chief Complaint: RIGHT LOWER EXTREMITY PAIN, SWELLING and REDNESS. Alert. ZAK COMA SCORE: [place] Coma Scale: 15- eyes open spontaneously (4); best verbal response- oriented x 4 (5); best motor response- obeys commands (6). --15:24 Elgin Wallis R.N. 15:09 02/10/17. BP: 131/56. HR: 98. RR: 16. O2 saturation: 96%. Temp: 98.8 F. Pain level now: 5/10. Additional comments: Leg pain. --15:24 Elgin Wallis R.N. Weight: 79.3 kg stated. Height/Length: 61 inches Per Patient. BMI: 33. --15:20 Elgin Wallis R.N. Medications Albuterol Sulfate HFA Inhalation. Amphetamine-DEXTROAMPHETAMINE Oral. Bisacodyl EC Oral. Buprenorphine HCl-Naloxone HCl Sublingual. Calcium & Magnesium Carbonates Oral. Cholecalciferol Oral. Estradiol Transdermal. Levothyroxine Sodium Oral. MetFORMIN HCl Oral. Minocycline HCl ER Oral. --15:18 Elgin Wallis R.N. Polyethylene Glycol 3350 Oral. Venlafaxine HCl Oral. --15:18 Elgin Wallis R.N. Bactrim DS Oral 1 tablet, 2x a day. --15:52 Elgin Wallis R.N. Keflex Oral 500 mg x 2, 2x a day. --15:53 Elgin Wallis R.N. Allergies No Known Drug Allergy. --15:18 Elgin Wallis R.N. History Arrived by private vehicle. Historian: patient. Accompanied by spouse. Primary physician (Levi Tena). ( Biat Leg Pain. Pt states that she is being treated for Lyme's' Disease and recencetly was treated with a course of antibiotics.). No injury occurred. This occurred (about 17 years ago--got bitten with a tick in [facility]). She has had swelling, redness and trouble walking. PAST MEDICAL HX: Type II diabetes mellitus treated with oral medication. Peripheral neuropathy. Tetanus status: unknown. Immunizations: status is unknown. The patient is post-menopausal. SOCIAL HX: Never smoker. No alcohol use. Infectious disease exposure. (Lyme's Disease). ABUSE ASSESSMENT: No report of abuse. FALL RISK ASSESSMENT: Fall risk assessment completed. No fall risk identified. NUTRITIONAL RISK ASSESSMENT: The nutritional risk assessment revealed no deficiencies. FUNCTIONAL ASSESSMENT: Functional assessment: no impairments noted. LEARNING NEEDS ASSESSMENT: The learning needs assessment revealed no barriers. SKIN INTEGRITY ASSESSMENT: Skin integrity risk assessment completed. No skin integrity risk identified. --15:24 lEgin Wallis R.N. PROBLEMS: Cellulitis. Sleep walking disorder. Substance Abuse. Fibromyalgia. Hepatitis. Depression . Grief Reaction. Headache. Insomnia. Sleep Apnea. Diabetes Mellitus. --15:18 Elgin Wallis R.N. ADDITIONAL SURGERIES: . Cystocele/Rectocele Repair. Foot surgery . Hysterectomy. --15:18 Elgin Wallis R.N. Interventions ID band on patient. To treatment room. --15:24 Elgin Wallis R.N. PHYSICAL ASSESSMENT Ambulatory to room. GENERAL / NEURO / PSYCH: Oriented X 4. EXTREMITIES: Extremity pulses are within normal limits. Extremities exhibit normal ROM. No lower extremity edema. Normal gait. Right leg. Left leg: tenderness, swelling and erythema. SKIN: Skin intact. Skin is warm and dry. --15:52 Elgin Wallis R.N. EXTREMITIES: ( Murmur RSB and LSB 2 ICS's). --16:08 Elgin Wallis R.N. NURSING PROGRESS NOTES Patient gowned. Reassurance given. Patient identifiers checked. Call light placed in reach. Side rails up x 1. Bed placed in lowest position. Brakes of bed on. Patient ready for evaluation- chart flagged and ED physician notified. --15:25 Elgin Wallis R.N. 15:40 02/10/2017 Site #1 started via IV in the left hand with an 20g angiocath, with aseptic technique and good blood return; one attempt. Blood drawn: rainbow set. Labeled in the presence of the patient and sent to the lab. Saline lock flushed with 10 mL saline. --15:51 Elgin Wallis R.N. Patient transported to radiology by stretcher with tech. --15:52 Elgin Wallis R.N. Patient returned. (16:00 Feb 10 2017). --16:06 Elgin Wallis R.N. 15:45 02/10/2017 Started bag #1 1000 mL IV Fluids IV NS (Saline); at 999 mL/hr over 1 hour(s) via site #1. Allergies verified and confirmed 5 rights. IV patency established. IV site checked: no pain, redness, or swelling. IV flushed thoroughly pre- and post-medication administration. Completed per protocol. --17:21 Katrin Conklin R.N. 16:07 02/10/17. ( compliance technician in room doing procedure). --16:07 Elgin Wallis R.N. EKG time: (7633). EKG was ordered, performed by a tech and shown to the ED physician. --16:16 Sakina Oconnor ER Tech1 17:00 02/10/17. Assisted patient to bathroom, to sit up, to stand, to ambulate and back to bed; tolerated well. --17:00 Katrin Conklin R.N. 17:18 02/10/17. BP: 123/69. HR: 93. RR: 14. O2 saturation: 96% on room air. --17:19 Katrin Conklin R.N. 17:15 02/10/2017 IV Fluids IV NS Bag Change: bag #1 infused. Total amount infused: 1000. STARTED bag #2 (1000 mL) at 500 mL/hr via IV pump. Confirmed 5 rights. IV patency established. IV site checked: no pain, redness, or swelling. IV flushed thoroughly. --17:25 Katrin Conklin R.N. 17:19 02/10/17. Cardiac rhythm: normal sinus rhythm. engine monitor, pulse oximeter and NIBP monitor placed on patient. Patient ID band checked for patient name and birthdate: patient confirmed. Instructions provided to collect clean catch urine and patient verbalized understanding. Clean catch urine collected with return of angella-colored clear urine; odor is normal; sample sent to lab for urinalysis and culture. Specimen labeled in the presence of the patient. ( updated pt on plan of care). --17:19 Katrin Conklin R.N. 17:23 02/10/2017 Started 2 gm of Vancomycin IVPB in bag #1 500 mL; at 270 mL/hr over 2 hour(s) via site #1 via IV pump. Allergies verified and confirmed 5 rights. IV patency established. IV site checked: no pain, redness, or swelling. IV flushed thoroughly pre- and post-medication administration. Completed per protocol. --17:33 Katrin Conklin R.N. DISPOSITION / DISCHARGE 18:10 02/10/17. BP: 108/53. HR: 99. RR: 14. O2 saturation: 97% on room air. Temp: 98.8 F. Pain level now: 03/02. --19:17 Elgin Wallis R.N. Departure time: 1814. --19:17 Elgin Wallis R.N. 18:15. Condition at departure: improved. Admitted to Acute Care. Transported via stretcher by transport team with IV. Report was given to a nurse via a phone call. Report included patient's care, treatment, medications, reviewed medication reconcilliation, and condition (including any recent changes or anticipated changes). All questions were answered. Report was acknowledged and care was transferred. (SANTANA Tejeda). Patient's personal items; items were placed in belongings bag and transported with the patient. --19:20 Elgin Wallis R.N. Locked/Released at 02/10/2017 19:20 by Elgin Wallis R.N.
--- NOTE | 2017-02-10 16:57 | ED CLINICAL REPORT ---
Clinical Report - Physicians/Mid Levels [facility] [address] [place] [address] 02/10/2017 14:57 Patient: ROSEMARIE ORNELAS Time Seen: 15:21. Arrived- By private vehicle. Historian- patient. HISTORY OF PRESENT ILLNESS Chief Complaint: LOWER EXTREMITY PAIN and SWELLING. Severity is described as being moderate. The quality is noted to be "pain" and similar to prior episodes. No radiation. Modifying factors- worsened by walking and movement. Relieved by remaining still. This started several weeks ago and is still present. It was gradual in onset and has been waxing/waning. Symptoms located in the area of the right thigh, left thigh, right leg and left leg. The patient has had redness and swelling. She has had difficulty walking. No bladder dysfunction, bowel dysfunction, sensory loss or motor loss. ( Biat Leg Pain. Pt states that she is being treated for Lyme's' Disease and recencetly was treated with a course of antibiotics). Patient denies an injury. Similar symptoms previously: Recent medical care: The patient was seen recently at this facility in the emergency department. Seen for similar symptoms. Diagnosis: cellulitis. REVIEW OF SYSTEMS No cough, chest pain, difficulty breathing, fever or headache. No blurred vision, sore throat, abdominal pain, vomiting or diarrhea. No black stools, difficulty with urination or bloody stools. The patient has had neck pain. It has been similar to previous episodes. She has had back pain. It has been similar to previous symptoms. PAST HISTORY ( Primary physician (Levi Tena) See nurses notes. PROBLEMS: Lyme disease - states was bitten by a tic in [facility] 17 years ago Fibromyalgia. Hepatitis. Tremor. Depression . Grief Reaction. Headache. Fall. Insomnia. Sleep Apnea. Diabetes Mellitus. Hypothyroidism. Recovering opiate addict ADHD SURGERIES: . Foot surgery . Hysterectomy). Medications: Keflex Oral 500 mg x 2, 2x a day. Bactrim DS Oral 1 tablet, 2x a day. Polyethylene Glycol 3350 Oral. Venlafaxine HCl Oral. Albuterol Sulfate HFA Inhalation. Amphetamine-DEXTROAMPHETAMINE Oral. Bisacodyl EC Oral. Buprenorphine HCl-Naloxone HCl Sublingual. Calcium & Magnesium Carbonates Oral. Cholecalciferol Oral. Estradiol Transdermal. Levothyroxine Sodium Oral. MetFORMIN HCl Oral. Minocycline HCl ER Oral. Allergies: No Known Drug Allergy. SOCIAL HISTORY Former smoker. History of drug use opiates. Is a recovering addict. No alcohol use. Is a local resident. ADDITIONAL NOTES The nursing notes have been reviewed. PHYSICAL EXAM Vital Signs: 02/10/2017 15:09 BP: 131/56. HR: 98. RR: 16. O2 saturation: 96%. Temp: 98.8 F. Pain level now: 5/10. Appearance: Alert. Oriented X3. Patient in mild distress. Eyes: Eyes normal inspection. No pale conjunctivae or scleral icterus. ENT: Pharynx normal. Neck: Normal inspection. Neck supple. CVS: Normal heart rate and rhythm. Heart sounds normal. Respiratory: No respiratory distress. Breath sounds normal. Abdomen: Soft and nontender. Back: Normal inspection. No tenderness. Skin: No cyanosis. Large area of cellulitis with tenderness, erythema and warmth to right thigh, right leg, left thigh and left leg. Skin not cool on palpation. No pallor or diaphoresis. Extremities: Right thigh: mild erythema, tenderness and swelling located in the lower thigh. Neurovascular intact distally. No abrasion or puncture wound. Left thigh: moderate erythema and mild tenderness and swelling located in the lower thigh. No puncture wound or foreign body. Right leg: moderate erythema, tenderness and swelling. Left leg: moderate tenderness and swelling located in the anterior, posterior, medial and lateral aspect of lower leg. Limited weight bearing secondary to pain. Neurovascular intact distally. No abrasion, ecchymosis, puncture wound, foreign body or deformity. Lower extremity swelling, warmth, tenderness and erythema present. No drainage. Lower extremity edema. Moderate right-sided and left-sided calf tenderness. Extremities otherwise negative. Gait: No limping gait. She was able to bear weight. Neuro, Vascular and Tendons: No pulse deficit present. Lower extremity capillary refill not prolonged. Neuro: Oriented X 3. No motor deficit. No sensory deficit. LABS, X-RAYS, AND EKG EKG: EKG time: (15:44). Rate: 100. Normal P waves. Normal DIAZ. Normal QRS complex. Normal axis. Non-specific ST segment / T wave abnormalities. The study has been interpreted contemporaneously by me. The EKG appears to be a good tracing. Rhythm Strip #1: Normal sinus rhythm. Regular rhythm. Narrow QRS complexes. No ectopy. Chest X-ray: No acute disease. Normal lung markings present. Normal heart size. Mediastinum normal. Great vessels normal. No infiltrate. Views: PA and lateral. Technique: good. The X-rays were interpreted contemporaneously by me. The X-rays were discussed with the radiologist (via PACS note). Lower Extremity Sonography: prominent lymphadenopathy bilateral common femoral area. Indication for study: extremity pain and swelling. The exam was performed by a fire control technician. Laboratory Tests: UA-Culture if indicated: (IVAN: 02/10/2017 17:10) ( MsgRcvd 02/10/2017 17:38) Final results Test Result Flag Units (Reference) URINE COLOR YELLOW URINE APPEARANCE CLEAR URINE GLUCOSE NEGATIVE (NEGATIVE) URINE BILIRUBIN NEGATIVE (NEGATIVE) URINE KETONE NEGATIVE (NEGATIVE) URINE SPECIFIC GRAVITY 1.015 (1.010-1.030) URINE PH 7.5 (5.0-8.0) URINE PROTEIN NEGATIVE (NEGATIVE) URINE UROBILINOGEN 0.2 EU/dL (0.2-1.0) URINE NITRITE NEGATIVE (NEGATIVE) URINE BLOOD NEGATIVE (NEGATIVE) URINE LEUK ESTERASE NEGATIVE (NEGATIVE) URINE RBC NONE SEEN rbc/hpf (0-1) URINE WBC 1-3 wbc/hpf (0-1) URINE EPITHELIAL CELLS 5-10 EPI/hpf (0-5) URINE BACTERIA TRACE (<1+) (NONE SEEN) URINE COMMENT CULT NOT INDICATED URINE CULTURES ARE SET-UP BASED ON THE FOLLOWING CRITERIA:POSITIVE NITRITEPOSITIVE LEUKOCYTE ESTERASEGREATER THAN 10 WHITE BLOOD CELLSMODERATE (2+) OR GREATER BACTERIA CBC w Diff: (IVAN: 02/10/2017 15:45) ( MsgRcvd 02/10/2017 16:28) Final results Test Result Flag Units (Reference) WHITE BLOOD COUNT 5.9 K/uL (4.5-11.5) RED BLOOD COUNT 4.43 M/uL (4.00-5.20) HEMOGLOBIN 12.1 gm/dL (12.0-16.0) HEMATOCRIT 36.1 % (36.0-46.0) MEAN CELL VOLUME 82 fL (80-100) MEAN CORPUSCULAR HGB 27 pg (26-34) MEAN CORPUSCULAR HGB CONC 34 g/dL (31-37) RED CELL DISTRIBUTION WIDTH 13.2 % (11.6-14.8) PLATELET COUNT 249 K/uL (150-400) NEUTROPHIL % 49.2 L % (50-75) LYMPH % 35.2 % (25-40) MONO % 12.1 % (3-14) EOSINOPHIL % 3.0 % (0-4) BASOPHIL % 0.5 % (0-2) [id number]: (IVAN: 02/10/2017 15:45) ( [facility] 02/10/2017 16:35) Final results Test Result Flag Units (Reference) D-DIMER QUANTITATIVE 0.95 H ug/mLFEU (0.27-0.52) The primary value of this quantitative assay relates toits negative predictive value (i.e. exclusion) of pulmonaryembolism/deep vein thrombosis/DIC.Elevated levels of d-dimer may also occur with:, age, cancer, inflammation, liver disease,post-op, infection, hematoma, coronary disease, peripheralarteriopathy, bleeding disorders and thrombolytic treatment.Results should be correlated with other clinical andradiological data.Testing Methodology: Latex Immunoassay TSH: (IVAN: 02/10/2017 17:33) ( [facility] 02/10/2017 17:53) Final results Test Result Flag Units (Reference) THYROID STIMULATING HORMONE 2.173 uIU/mL (0.30-3.74) Urine Drug Screen: (IVAN: 02/10/2017 17:10) ( [facility] 02/10/2017 17:46) Final results Test Result Flag Units (Reference) AMPHETAMINE/METHAMPHETAMINE NEGATIVE (NEGATIVE) BARBITURATE NEGATIVE (NEGATIVE) BENZODIAZEPINE NEGATIVE (NEGATIVE) CANNABINOID NEGATIVE (NEGATIVE) COCAINE NEGATIVE (NEGATIVE) ECSTASY NEGATIVE (NEGATIVE) METHADONE NEGATIVE (NEGATIVE) OPIATE NEGATIVE (NEGATIVE) The urine drug screen is a qualitative screening test fordrug overdose and abuse. All screen results should beconsidered as presumptive.Drugs screened for are as follows:BenzodiazepinesCocaineAmphetamines/MetamphetaminesTHC (Tetrahydrocannabinol)OpiatesBarbituratesEcstasyMethadonePositive results are unconfirmed. For confirmation, notifythe lab for the specimen to be sent to the reference lab.All confirmations must be performed by a differentmethodology.The ingestion of natural herbal and plant productscontaining Ephedra/Ephedra metabolites can produce in urineone or more substances capable of cross reacting withamphetamine/methamphetamine immunoassays. These testsprovide a preliminary result only. A more specificalternative chemical method must be used to obtain aconfirmed analytical result. Lactate, Serum: (IVAN: 02/10/2017 15:45) ( [facility] 02/10/2017 16:30) Final results Test Result Flag Units (Reference) LACTIC ACID 1.9 mmol/L (0.4-2.0) [id number]: (IVAN: 02/10/2017 15:45) ( [facility] 02/10/2017 16:48) Final results Test Result Flag Units (Reference) PROCALCITONIN <0.5 ng/mL (0-0.5) PCT Concentration: Interpretation : Risk/option for action PCT <=0.5 ng/mL : Systemic : Low risk forinfection(sepsis): progression to severeis not likely. : systemic infection.Local bacterial : CAUTION-PCT levelsinfection is : below 0.5 ng/mL do notpossible. : exclude an infection,because localizedinfections (withoutsystemic signs) may beassociated with suchlow levels. If PCT ismeasured very earlyafter a bacterialchallenge (usually <6hours), these valuesmay still be low. Inthis case PCT shouldbe re-assessed 6-24hours later. PCT >0.5 and : Systemic infection: Moderate risk for<= 2 ng/mL : (sepsis) is : progression to severepossible, but : systemic infection.other conditions : The patient should beare known to : closely monitoredelevate PCT. : both clinically andby re-assessing PCTwithin 6-24 hours. PCT > 2 ng/mL : Systemic infection: High risk for(sepsis) is likely: progression to severeunless other : systemic infection.causes are known. : PCT >= 10 ng/mL : Important systemic: High likelihood ofinflammatory : severe sepsis orresponse, almost : septic shock.exclusively due to:severe bacterial :sepsis or septic :shock. : BNP: (IVAN: 02/10/2017 15:45) ( [facility] 02/10/2017 16:49) Final results Test Result Flag Units (Reference) B-TYPE NATRIURETIC PEPTIDE 5.6 pg/ml (5-100) CHEM 13 PANEL: (IVAN: 02/10/2017 15:45) ( [facility] [place]10[facility]20[place] Final results Test Result Flag Units (Reference) GLUCOSE 117 H mg/dL (70-110) BUN 16 mg/dL (7-18) CREATININE 0.8 mg/dL (0.6-1.3) Estimated GFR >60 mL/min Estimated GFR- >60 mL/min Note: Persistent reduction over 3 months in eGFR<60 mL/min/1.73 m2 defines CKD. Patients with eGFR values>=60 mL/min/1.73 m2 may also have CKD if evidence ofpersistent proteinuria. Additional information may be foundat www.kidney.org. SODIUM 135 L mmol/L (136-145) POTASSIUM 4.1 mmol/L (3.5-5.1) CHLORIDE 100 mmol/L (98-107) CARBON DIOXIDE 28 mmol/L (21-32) CALCIUM 8.3 L mg/dL (8.5-10.1) TOTAL PROTEIN 7.1 g/dL (6.4-8.2) ALBUMIN 3.3 g/dL (3.3-5.0) BILIRUBIN, TOTAL 0.4 mg/dL (0.0-1.0) ALKALINE PHOSPHATASE 80 U/L (46-116) AST (SGOT) 76 H U/L (15-37) ALT (SGPT) 68 U/L (12-78) CPK 149 U/L (24-260) MAGNESIUM 2.0 mg/dL (1.8-2.4) AMYLASE 44 U/L (25-115) TROPONIN I <0.05 L ng/mL (0.00-1.5) TROPONIN REFERENCE RANGE:<0.1 NEGATIVE0.1-1.5 INDETERMINANT>1.5 POSITIVE . Pulse Oximetry: 02/10/2017 15:09 O2 saturation: 96%. (FIO2 - room air). Interpretation: normal. PROGRESS AND PROCEDURES Course of Care: Normal Saline 1 liter IVPB given. Vancomycin 2 grams IVPB given. Patient is stable. The patient's symptoms are unchanged. Discussed case with hospitalist, (Mikal call placed). Reviewed test results. Agreed upon treatment plan and decision to place in observation. Health care provider will see patient in hospital. Patient/family counseled. Old ED records reviewed. Transition orders written. Disposition: Observation in Acute Care. Condition: stable. CLINICAL IMPRESSION Cellulitis of the right lower leg and left lower leg. (Electronically signed by Andres Mora DO 02/10/2017 21:53)
--- NOTE | 2017-02-10 16:57 | ED ORDER SUMMARY ---
..... Patient: ROSEMARIE ORNELAS OrderSheet [facility] VisitID: [id number] [place] [address] 56y, F Registration Date/Time: 02/10/2017 ORDER SHEET Weight: 79.3 kg (stated) Allergies: No Known Drug Allergy GENERAL ORDERS: Chest 2V Urgent (15:02/10/2017 PHutchinson DO) (Ack 15:30 KHoerner) (17:20 KWilliams R.N.) Engineer Internship (Continuous) (15:02/10/2017 PHutchinson DO) (17:19 KWilliams R.N.) UA-Culture if indicated Urgent (15:02/10/2017 PHutchinson DO) (Ack 15:30 KHoerner) (17:20 KWilliams R.N.) Cardiac Panel Stat (:02/10/2017 PHutchinson DO) (Ack 15:30 KHoerner) (15:51 JRomanelli R.N.) BNP Urgent (15:02/10/2017 PHutchinson DO) (Ack 15:30 KHoerner) (15:51 JRomanelli R.N.) D-Dimer Urgent (15:02/10/2017 PHutchinson DO) (Ack 15:30 KHoerner) (15:51 JRomanelli R.N.) Amylase Urgent (15:02/10/2017 PHutchinson DO) (Ack 15:30 KHoerner) (15:51 JRomanelli R.N.) Pulse oximeter (15:02/10/2017 PHutchinson DO) (17:20 KWilliams R.N.) EKG - ER Stat (15:02/10/2017 PHutchinson DO) (Ack 15:30 KHoerner) (15:45 LNations ER Tech1) Vitals (15:02/10/2017 PHutchinson DO) (17:07 KWilliams R.N.) Lactate, Serum Urgent (15:02/10/2017 PHutchinson DO) (Ack 15:30 KHoerner) (15:51 JRomanelli R.N.) PCT (Procalcitonin) Urgent (15:29 02/10/2017 PHutchinson DO) (Ack 15:30 KHoerner) (15:51 omanelli R.N.) Urine Drug Screen Urgent (15:29 02/10/2017 PHutchinson DO) (Ack 15:47 KHoerner) (17:20 KWilliams R.N.) US Venous Bilat Urgent (15:38 02/10/2017 PHutchinson DO) (Ack 15:47 KHoerner) (16:34 KHoerner) Call (Place call to): (Dr Ren) (16:44 02/10/2017 PHutchinson DO) (Ack 16:45 KHoerner) (17:03 KHoerner) TSH Urgent (17:30 02/10/2017 PHutchinson DO) (Ack 17:33 LNations ER Tech1) (17:34 KWilliams R.N.) MEDICATION ORDERS: IV FLUIDS: IV Saline Lock (15:28 02/10/2017 PHdechinson DO) (15:51 Martine R.N.) IV NS with Normal Saline 1 Liter: initial bolus 1000 mL (1000 mL/hr), then 500 mL/hr for X2 (NOW) (15:29 02/10/2017 PHdechinson DO) (17:21 KWilliams R.N.) Vancomycin IV 2 gm/500 mL (NOW) (16:16 02/10/2017 [facility] Unitchinson DO) (17:33 KWilliams R.N.) ORDER SHEET NOTES: [Electronically signed by Elgin Wallis R.N. (19:20 02/10/2017)] [Electronically signed by Andres Mora DO (21:53 02/10/2017)] [Electronically locked/signed by Elgin Wallis R.N. (19:20 02/10/2017)]
--- NOTE | 2017-02-10 16:57 | ED CLINICAL REPORT ---
Clinical Report - Physicians/Mid Levels [facility] [address] [place] [address] 02/10/2017 14:57 Patient: ROSEMARIE ORNELAS Time Seen: 15:21. Arrived- By private vehicle. Historian- patient. HISTORY OF PRESENT ILLNESS Chief Complaint: LOWER EXTREMITY PAIN and SWELLING. Severity is described as being moderate. The quality is noted to be "pain" and similar to prior episodes. No radiation. Modifying factors- worsened by walking and movement. Relieved by remaining still. This started several weeks ago and is still present. It was gradual in onset and has been waxing/waning. Symptoms located in the area of the right thigh, left thigh, right leg and left leg. The patient has had redness and swelling. She has had difficulty walking. No bladder dysfunction, bowel dysfunction, sensory loss or motor loss. ( Biat Leg Pain. Pt states that she is being treated for Lyme's' Disease and recencetly was treated with a course of antibiotics). Patient denies an injury. Similar symptoms previously: Recent medical care: The patient was seen recently at this facility in the emergency department. Seen for similar symptoms. Diagnosis: cellulitis. REVIEW OF SYSTEMS No cough, chest pain, difficulty breathing, fever or headache. No blurred vision, sore throat, abdominal pain, vomiting or diarrhea. No black stools, difficulty with urination or bloody stools. The patient has had neck pain. It has been similar to previous episodes. She has had back pain. It has been similar to previous symptoms. PAST HISTORY ( Primary physician (Levi Tena) See nurses notes. PROBLEMS: Lyme disease - states was bitten by a tic in [facility] 17 years ago Fibromyalgia. Hepatitis. Tremor. Depression . Grief Reaction. Headache. Fall. Insomnia. Sleep Apnea. Diabetes Mellitus. Hypothyroidism. Recovering opiate addict ADHD SURGERIES: . Foot surgery . Hysterectomy). Medications: Keflex Oral 500 mg x 2, 2x a day. Bactrim DS Oral 1 tablet, 2x a day. Polyethylene Glycol 3350 Oral. Venlafaxine HCl Oral. Albuterol Sulfate HFA Inhalation. Amphetamine-DEXTROAMPHETAMINE Oral. Bisacodyl EC Oral. Buprenorphine HCl-Naloxone HCl Sublingual. Calcium & Magnesium Carbonates Oral. Cholecalciferol Oral. Estradiol Transdermal. Levothyroxine Sodium Oral. MetFORMIN HCl Oral. Minocycline HCl ER Oral. Allergies: No Known Drug Allergy. SOCIAL HISTORY Former smoker. History of drug use opiates. Is a recovering addict. No alcohol use. Is a local resident. ADDITIONAL NOTES The nursing notes have been reviewed. PHYSICAL EXAM Vital Signs: 02/10/2017 15:09 BP: 131/56. HR: 98. RR: 16. O2 saturation: 96%. Temp: 98.8 F. Pain level now: 5/10. Appearance: Alert. Oriented X3. Patient in mild distress. Eyes: Eyes normal inspection. No pale conjunctivae or scleral icterus. ENT: Pharynx normal. Neck: Normal inspection. Neck supple. CVS: Normal heart rate and rhythm. Heart sounds normal. Respiratory: No respiratory distress. Breath sounds normal. Abdomen: Soft and nontender. Back: Normal inspection. No tenderness. Skin: No cyanosis. Large area of cellulitis with tenderness, erythema and warmth to right thigh, right leg, left thigh and left leg. Skin not cool on palpation. No pallor or diaphoresis. Extremities: Right thigh: mild erythema, tenderness and swelling located in the lower thigh. Neurovascular intact distally. No abrasion or puncture wound. Left thigh: moderate erythema and mild tenderness and swelling located in the lower thigh. No puncture wound or foreign body. Right leg: moderate erythema, tenderness and swelling. Left leg: moderate tenderness and swelling located in the anterior, posterior, medial and lateral aspect of lower leg. Limited weight bearing secondary to pain. Neurovascular intact distally. No abrasion, ecchymosis, puncture wound, foreign body or deformity. Lower extremity swelling, warmth, tenderness and erythema present. No drainage. Lower extremity edema. Moderate right-sided and left-sided calf tenderness. Extremities otherwise negative. Gait: No limping gait. She was able to bear weight. Neuro, Vascular and Tendons: No pulse deficit present. Lower extremity capillary refill not prolonged. Neuro: Oriented X 3. No motor deficit. No sensory deficit. LABS, X-RAYS, AND EKG EKG: EKG time: (15:44). Rate: 100. Normal P waves. Normal DIAZ. Normal QRS complex. Normal axis. Non-specific ST segment / T wave abnormalities. The study has been interpreted contemporaneously by me. The EKG appears to be a good tracing. Rhythm Strip #1: Normal sinus rhythm. Regular rhythm. Narrow QRS complexes. No ectopy. Chest X-ray: No acute disease. Normal lung markings present. Normal heart size. Mediastinum normal. Great vessels normal. No infiltrate. Views: PA and lateral. Technique: good. The X-rays were interpreted contemporaneously by me. The X-rays were discussed with the radiologist (via PACS note). Lower Extremity Sonography: prominent lymphadenopathy bilateral common femoral area. Indication for study: extremity pain and swelling. The exam was performed by a agronomy technician. Laboratory Tests: UA-Culture if indicated: (IVAN: 02/10/2017 17:10) ( MsgRcvd 02/10/2017 17:38) Final results Test Result Flag Units (Reference) URINE COLOR YELLOW URINE APPEARANCE CLEAR URINE GLUCOSE NEGATIVE (NEGATIVE) URINE BILIRUBIN NEGATIVE (NEGATIVE) URINE KETONE NEGATIVE (NEGATIVE) URINE SPECIFIC GRAVITY 1.015 (1.010-1.030) URINE PH 7.5 (5.0-8.0) URINE PROTEIN NEGATIVE (NEGATIVE) URINE UROBILINOGEN 0.2 EU/dL (0.2-1.0) URINE NITRITE NEGATIVE (NEGATIVE) URINE BLOOD NEGATIVE (NEGATIVE) URINE LEUK ESTERASE NEGATIVE (NEGATIVE) URINE RBC NONE SEEN rbc/hpf (0-1) URINE WBC 1-3 wbc/hpf (0-1) URINE EPITHELIAL CELLS 5-10 EPI/hpf (0-5) URINE BACTERIA TRACE (<1+) (NONE SEEN) URINE COMMENT CULT NOT INDICATED URINE CULTURES ARE SET-UP BASED ON THE FOLLOWING CRITERIA:POSITIVE NITRITEPOSITIVE LEUKOCYTE ESTERASEGREATER THAN 10 WHITE BLOOD CELLSMODERATE (2+) OR GREATER BACTERIA CBC w Diff: (IVAN: 02/10/2017 15:45) ( MsgRcvd 02/10/2017 16:28) Final results Test Result Flag Units (Reference) WHITE BLOOD COUNT 5.9 K/uL (4.5-11.5) RED BLOOD COUNT 4.43 M/uL (4.00-5.20) HEMOGLOBIN 12.1 gm/dL (12.0-16.0) HEMATOCRIT 36.1 % (36.0-46.0) MEAN CELL VOLUME 82 fL (80-100) MEAN CORPUSCULAR HGB 27 pg (26-34) MEAN CORPUSCULAR HGB CONC 34 g/dL (31-37) RED CELL DISTRIBUTION WIDTH 13.2 % (11.6-14.8) PLATELET COUNT 249 K/uL (150-400) NEUTROPHIL % 49.2 L % (50-75) LYMPH % 35.2 % (25-40) MONO % 12.1 % (3-14) EOSINOPHIL % 3.0 % (0-4) BASOPHIL % 0.5 % (0-2) [id number]: (IVAN: 02/10/2017 15:45) ( [facility] 02/10/2017 16:35) Final results Test Result Flag Units (Reference) D-DIMER QUANTITATIVE 0.95 H ug/mLFEU (0.27-0.52) The primary value of this quantitative assay relates toits negative predictive value (i.e. exclusion) of pulmonaryembolism/deep vein thrombosis/DIC.Elevated levels of d-dimer may also occur with:, age, cancer, inflammation, liver disease,post-op, infection, hematoma, coronary disease, peripheralarteriopathy, bleeding disorders and thrombolytic treatment.Results should be correlated with other clinical andradiological data.Testing Methodology: Latex Immunoassay TSH: (IVAN: 02/10/2017 17:33) ( [facility] 02/10/2017 17:53) Final results Test Result Flag Units (Reference) THYROID STIMULATING HORMONE 2.173 uIU/mL (0.30-3.74) Urine Drug Screen: (IVAN: 02/10/2017 17:10) ( [facility] 02/10/2017 17:46) Final results Test Result Flag Units (Reference) AMPHETAMINE/METHAMPHETAMINE NEGATIVE (NEGATIVE) BARBITURATE NEGATIVE (NEGATIVE) BENZODIAZEPINE NEGATIVE (NEGATIVE) CANNABINOID NEGATIVE (NEGATIVE) COCAINE NEGATIVE (NEGATIVE) ECSTASY NEGATIVE (NEGATIVE) METHADONE NEGATIVE (NEGATIVE) OPIATE NEGATIVE (NEGATIVE) The urine drug screen is a qualitative screening test fordrug overdose and abuse. All screen results should beconsidered as presumptive.Drugs screened for are as follows:BenzodiazepinesCocaineAmphetamines/MetamphetaminesTHC (Tetrahydrocannabinol)OpiatesBarbituratesEcstasyMethadonePositive results are unconfirmed. For confirmation, notifythe lab for the specimen to be sent to the reference lab.All confirmations must be performed by a differentmethodology.The ingestion of natural herbal and plant productscontaining Ephedra/Ephedra metabolites can produce in urineone or more substances capable of cross reacting withamphetamine/methamphetamine immunoassays. These testsprovide a preliminary result only. A more specificalternative chemical method must be used to obtain aconfirmed analytical result. Lactate, Serum: (IVAN: 02/10/2017 15:45) ( [facility] 02/10/2017 16:30) Final results Test Result Flag Units (Reference) LACTIC ACID 1.9 mmol/L (0.4-2.0) [id number]: (IVAN: 02/10/2017 15:45) ( [facility] 02/10/2017 16:48) Final results Test Result Flag Units (Reference) PROCALCITONIN <0.5 ng/mL (0-0.5) PCT Concentration: Interpretation : Risk/option for action PCT <=0.5 ng/mL : Systemic : Low risk forinfection(sepsis): progression to severeis not likely. : systemic infection.Local bacterial : CAUTION-PCT levelsinfection is : below 0.5 ng/mL do notpossible. : exclude an infection,because localizedinfections (withoutsystemic signs) may beassociated with suchlow levels. If PCT ismeasured very earlyafter a bacterialchallenge (usually <6hours), these valuesmay still be low. Inthis case PCT shouldbe re-assessed 6-24hours later. PCT >0.5 and : Systemic infection: Moderate risk for<= 2 ng/mL : (sepsis) is : progression to severepossible, but : systemic infection.other conditions : The patient should beare known to : closely monitoredelevate PCT. : both clinically andby re-assessing PCTwithin 6-24 hours. PCT > 2 ng/mL : Systemic infection: High risk for(sepsis) is likely: progression to severeunless other : systemic infection.causes are known. : PCT >= 10 ng/mL : Important systemic: High likelihood ofinflammatory : severe sepsis orresponse, almost : septic shock.exclusively due to:severe bacterial :sepsis or septic :shock. : BNP: (IVAN: 02/10/2017 15:45) ( [facility] 02/10/2017 16:49) Final results Test Result Flag Units (Reference) B-TYPE NATRIURETIC PEPTIDE 5.6 pg/ml (5-100) CHEM 13 PANEL: (IVAN: 02/10/2017 15:45) ( [facility] 02/10/2017 16:20) Final results Test Result Flag Units (Reference) GLUCOSE 117 H mg/dL (70-110) BUN 16 mg/dL (7-18) CREATININE 0.8 mg/dL (0.6-1.3) Estimated GFR >60 mL/min Estimated GFR- >60 mL/min Note: Persistent reduction over 3 months in eGFR<60 mL/min/1.73 m2 defines CKD. Patients with eGFR values>=60 mL/min/1.73 m2 may also have CKD if evidence ofpersistent proteinuria. Additional information may be foundat [email or web address].org. SODIUM 135 L mmol/L (136-145) POTASSIUM 4.1 mmol/L (3.5-5.1) CHLORIDE 100 mmol/L (98-107) CARBON DIOXIDE 28 mmol/L (21-32) CALCIUM 8.3 L mg/dL (8.5-10.1) TOTAL PROTEIN 7.1 g/dL (6.4-8.2) ALBUMIN 3.3 g/dL (3.3-5.0) BILIRUBIN, TOTAL 0.4 mg/dL (0.0-1.0) ALKALINE PHOSPHATASE 80 U/L (46-116) AST (SGOT) 76 H U/L (15-37) ALT (SGPT) 68 U/L (12-78) CPK 149 U/L (24-260) MAGNESIUM 2.0 mg/dL (1.8-2.4) AMYLASE 44 U/L (25-115) TROPONIN I <0.05 L ng/mL (0.00-1.5) TROPONIN REFERENCE RANGE:<0.1 NEGATIVE0.1-1.5 INDETERMINANT>1.5 POSITIVE . Pulse Oximetry: 02/10/2017 15:09 O2 saturation: 96%. (FIO2 - room air). Interpretation: normal. PROGRESS AND PROCEDURES Course of Care: Normal Saline 1 liter IVPB given. Vancomycin 2 grams IVPB given. Patient is stable. The patient's symptoms are unchanged. Discussed case with hospitalist, (Mikal call placed). Reviewed test results. Agreed upon treatment plan and decision to place in observation. Health care provider will see patient in hospital. Patient/family counseled. Old ED records reviewed. Transition orders written. Disposition: Observation in Acute Care. Condition: stable. CLINICAL IMPRESSION Cellulitis of the right lower leg and left lower leg. (Electronically signed by Andres Mora DO 02/10/2017 21:53)
[2017-02-10] MEDS ORDERED: ALBUTEROL HFA60 DOSE IN (18:11)
[2017-02-10] MEDS ORDERED: KEFLEX750 MG PO (18:13)
[2017-02-10] MEDS ORDERED: MIRALAX3350 N1 PO (18:15)
--- NOTE | 2017-02-10 18:18 | Progress Note ---
Subjective General Admission History and Physical Examination Patient Name: Sepideh Duneas Admission Date: February 10, 2017 Primary Care Provider: Levi Tena D.O. Attending Physician: Alvaro Ren M.D. Admitting Physician: Alvaro Ren M.D. Code Status: Full Code Room: 210-B SUBJECTIVE Historian: Patient Reliability: Fair Chief Complaint: Cellulitis legs History of Present Illness: The patient is a 56-year-old white female with a significant past medical history of hepatitis C, fibromyalgia, diabetes mellitus type 2, degenerative joint disease, chronic fatigue syndrome, Lyme disease, who presented to [facility] emergency department on the day of admission secondary to complaints of red swollen tender lower extremities. [facility] ER evaluation was consistent with cellulitis versus venous stasis dermatitis involving the lower legs bilaterally. Secondary to the above, the patient was admitted by Alvaro Ren M.D. for further evaluation and treatment. The history of present illness began several weeks prior to admission when the patient noted swelling, redness, warmth, and tenderness of lower legs bilaterally. This has been a recurrent problem in the past. She has had 6-7 previous episodes similar to this which primarily involving one or the other leg. These are all was treated with antimicrobials and require prolonged period time to slowly resolve. She has been treated as an outpatient with antimicrobials with no significant improvement in her symptoms. This has been unassociated with fever, chills, leukocytosis. The patient evaluation in the emergency room showed her to have normal WBC and afebrile. Secondary to suspected cellulitis versus venous stasis dermatitis the patient was admitted for further evaluation and treatment. PAST MEDICAL HISTORY Illnesses: 1. Hepatitis C 2. Fibromyalgia 3. Diabetes Mellitus Type 2 4. DJD 5. Chronic fatigue Allergies: 1. NKDA Medications: Albuterol Sulfate HFA Inhalation dosage unknown. Amphetamine-DEXTROAMPHETAMINE Oral. dosage unknown. Bisacodyl EC Oral. dosage unknown. Buprenorphine HCl-Naloxone HCl Sublingual. dosage unknown. Calcium & Magnesium Carbonates Oral dosage unknown. Cholecalciferol Oral dosage unknown. Estradiol Transdermal dosage unknown. Levothyroxine Sodium Oral dosage unknown. MetFORMIN HCl Oral dosage unknown. Minocycline HCl ER Oral dosage unknown. Polyethylene Glycol 3350 Oral dosage unknown. Venlafaxine HCl Oral dosage unknown. Bactrim DS Oral 1 tablet, 2x a day. Keflex Oral 500 mg x 2, 2x a day. Surgery: 1. Bladder Sling Injuries: 1. No significant Hospitalizations: 1. For above surgery and medical problems FAMILY HISTORY Parents: 1. Father, , 65, Bladder cancer 2. Mother, , 72, Lung cancer, COPD Siblings: 1. Female, Carmen, living, 58, Breast ca 2. Female, Ann, living, 48, healthy Children: 1. 4 children living, history of HTN, bipolar disease, Rheumatoid arthritis Other significant family history: None SOCIAL HISTORY 1. Marital Status: 2. Yazidi: Nonew 3. Education: High School, College 2 years 4. Employment History: [employer], disabled 2011 5. Occupational health exposures: Dust, heavy lifiting HABITS 1. Tobacco: No 2. Drugs: No 3. Alcohol: No 4. Caffeine: One cup coffee a day HEALTH SUPERVISION Item/Test 1. Not reviewed IMMUNIZATIONS: 1. Pneumococcal: 2015 2. Influenza: 2012 3. Tetanus: Unknown ADVANCED DIRECTIVES: 1. Living well: Yes 2. POLST: No 3. Code Status: Full Code 4. Durable Power Handle Rounder Operator Health care: No 5. Donor card: no REVIEW OF SYSTEMS Remarkable for those things stated in the history of present illness and past medical history. Seventeen point review of system completed with the following notable findings: See above Physical Exam General Appearance Alert, Oriented X3, Cooperative, No acute distress HEENT Atraumatic, PERRLA, EOMI, Moist mucous membranes Lungs Clear to auscultation, Normal air movement Neck Supple, No JVD, No masses Cardiovascular Regular rate and rhythm, Normal S1 and S2, Grade 1-2/6 systolic murmur Abdomen Normal bowel sounds, Soft, No tenderness Extremities No cyanosis, No clubbing, bilateral LE edema and redness below knee. Tender to palpation Neurological Cranial nerves intact, Strength 5/5 x4 ext's, No lateralizing signs Psych/Mental Status Mental status normal, Mood normal LAB Results Laboratory Tests 02/10 02/10 02/10 02/10 1733 1710 1545 1545 Chemistry Lactic Acid (0.4 - 2.0 mmol/L) 1.9 Procalcitonin (0 - 0.5 ng/mL) <0.5 TSH 3rd Generation (0.30 - 3.74 uIU/mL) 2.173 Toxicology Urine Opiates Screen (NEGATIVE) NEGATIVE Urine Methadone Screen (NEGATIVE) NEGATIVE Ur Barbiturates Screen (NEGATIVE) NEGATIVE U Amphetamin/Meth Scrn (NEGATIVE) NEGATIVE MDMA (Ecstasy) Screen (NEGATIVE) NEGATIVE U Benzodiazepines Scrn (NEGATIVE) NEGATIVE Urine Cocaine Screen (NEGATIVE) NEGATIVE U Cannabinoids Screen (NEGATIVE) NEGATIVE Urines Urine Color YELLOW Urine Appearance CLEAR Urine pH (5.0 - 8.0) 7.5 Ur Specific [place] (1.010 - 1.030) 1.015 Urine Protein (NEGATIVE) NEGATIVE Urine Ketones (NEGATIVE) NEGATIVE Urine Blood (NEGATIVE) NEGATIVE Urine Nitrite (NEGATIVE) NEGATIVE Urine Bilirubin (NEGATIVE) NEGATIVE Urine Urobilinogen (0.2 - 1.0 EU/dL) 0.2 Ur Leukocyte Esterase (NEGATIVE) NEGATIVE Urine RBC (0 - 1 rbc/hpf) NONE SEEN Urine WBC (0 - 1 wbc/hpf) 1-3 Ur Epithelial Cells (0 - 5 EPI/hpf) 5-10 Urine Bacteria (NONE SEEN) TRACE (<1+) Urine Glucose (NEGATIVE) NEGATIVE Urine Comment CULT NOT INDICATED 02/10 02/10 02/10 1545 1545 1528 Chemistry Plasma Sodium (136 - 145 mmol/L) 135 Plasma Potassium (3.5 - 5.1 mmol/L) 4.1 Plasma Chloride (98 - 107 mmol/L) 100 CO2 (Enzymatic) (21 - 32 mmol/L) 28 BUN (7 - 18 mg/dL) 16 Creatinine (0.6 - 1.3 mg/dL) 0.8 Est GFR ( Amer) (mL/min) >60 Est GFR (Non-Af Amer) (mL/min) >60 Glucose (70 - 110 mg/dL) 117 Plasma Calcium (8.5 - 10.1 mg/dL) 8.3 Plasma Magnesium (1.8 - 2.4 mg/dL) 2.0 Total Bilirubin (0.0 - 1.0 mg/dL) 0.4 AST (15 - 37 U/L) 76 ALT (12 - 78 U/L) 68 Alkaline Phosphatase (46 - 116 U/L) 80 Creatine Kinase (24 - 260 U/L) 149 Troponin (0.00 - 1.5 ng/mL) <0.05 B-Natriuretic Peptide (5 - 100 pg/ml) 5.6 Total Protein (6.4 - 8.2 g/dL) 7.1 Albumin (3.3 - 5.0 g/dL) 3.3 Amylase (25 - 115 U/L) 44 Cancelled Coagulation D-Dimer, Quantitative (0.27 - 0.52 ug/mLFEU) 0.95 Hematology WBC (4.5 - 11.5 K/uL) 5.9 RBC (4.00 - 5.20 M/uL) 4.43 Hgb (12.0 - 16.0 gm/dL) 12.1 Hct (36.0 - 46.0 %) 36.1 MCV (80 - 100 fL) 82 MCH (26 - 34 pg) 27 RDW (11.6 - 14.8 %) 13.2 Neut % (Auto) (50 - 75 %) 49.2 Lymph % (Auto) (25 - 40 %) 35.2 [place] % (Auto) (3 - 14 %) 12.1 Eos % (Auto) (0 - 4 %) 3.0 Baso % (Auto) (0 - 2 %) 0.5 Plt Count, EDTA (150 - 400 K/uL) 249 PUBS MCHC (31 - 37 g/dL) 34 Imaging Venous Doppler and Ultrasound-Bilateral Lower Extremities IMPRESSION: 1. No deep venous thrombosis in either lower extremity. Dictated by: PATRICIA DUVALL MD D: KEREN;02/10/17 1654 Chest X-Ray IMPRESSION: 1. Negative chest. Dictated by: EVA BRENNAN MD D: ALLIE;02/10/17 3057 Assessment and Plan Problem List 1. Cellulitis of both lower extremities Plan -Patient admitted with findings of erythematous lower extremities -Appears to represent venous stasis dermatitis -Afebrile, WBC within normal limits -Check CRP, ESR, Procalcitonin -DC vancomycin -Venous compression wraps, topical corticosteroids, SCDs E&M Codes Admission: Obsv-Comp/High/[id number] -Patient admitted with findings of erythematous lower extremities -Appears to represent venous stasis dermatitis -Afebrile, WBC within normal limits -Check CRP, ESR, Procalcitonin -DC vancomycin -Venous compression wraps, topical corticosteroids, SCDs E&M Codes Admission: Obsv-Comp/High/[id number]
[2017-02-10 18:34] VITALS: BP 120/70
--- NOTE | 2017-02-10 21:54 | ED MED RECONCILIATION SUMMARY ---
Patient: ROSEMARIE ORNELAS Medication Reconciliation Report [facility] VisitID: [id number] [address] [place] [address] 56y, F Registration Date/Time: 02/10/2017 Weight: 79.3 kg Height/Length: 61 in. BMI: 33.0 ALLERGIES: No Known Drug Allergy The patient's Home Medications are listed below: THE FOLLOWING MEDICATIONS NEED TO BE RECONCILED: Albuterol Sulfate HFA Inhalation Amphetamine-DEXTROAMPHETAMINE Oral Bactrim DS Oral 1 tablet, 2x a day Bisacodyl EC Oral Buprenorphine HCl-Naloxone HCl Sublingual Calcium & Magnesium Carbonates Oral Cholecalciferol Oral Estradiol Transdermal Keflex Oral 500 mg x 2, 2x a day Levothyroxine Sodium Oral MetFORMIN HCl Oral Minocycline HCl ER Oral Polyethylene Glycol 3350 Oral Venlafaxine HCl Oral The source(s) of the original Home Medication information: Not obtained. The following Medications were given to the patient in the Emergency Department: IV NS IV Fluids bolus 0, then 999 mL/hr, administered: 02/10/2017 3:45:00 PM Vancomycin [IVPB] IVPB bolus 0, then 2 gm 270 mL/hr, administered: 02/10/2017 5:23:00 PM The following Medications were prescribed to the patient: None.
--- NOTE | 2017-02-10 21:54 | ED MAR SUMMARY ---
..... Medication Administration Record [facility] [address] [place] [address] Patient: ROSEMARIE ORNELAS Visit ID: [id number] 56y, F Weight: 79.3 kg Height/Length: 61 in BMI: 33 ALLERGIES: No Known Drug Allergy Start 15:45 02/10/2017 Katrin Conklin R.N. Medication Administered: IV NS (SALINE), Dose: IV Fluids over 1 hour(s), Rate: 999 mL/hr, Dispensed: 1000 mL bag, Site: #1 left hand. Medication Ordered: IV NS with Normal Saline 1 Liter: initial bolus 1000 mL (1000 mL/hr), then 500 mL/hr for X2 (NOW). Start 17:23 02/10/2017 Katrin Conklin R.N. Medication Administered: VANCOMYCIN [IVPB], Dose: 2 gm IVPB over 2 hour(s), Rate: 270 mL/hr, Dispensed: 500 mL bag, Site: #1 left hand. Medication Ordered: Vancomycin IV 2 gm/500 mL (NOW).
--- NOTE | 2017-02-10 21:54 | ED DISCHARGE INSTRUCTIONS ---
Patient: ROSEMARIE ORNELAS General Instructions [facility] VisitID: [id number] [address] [place] [address] 56y, F Registration Date/Time: 02/10/2017 Cellulitis of the right lower leg and left lower leg. (Electronically signed by Andres Mora DO 02/10/2017 21:53)
--- NOTE | 2017-02-10 21:54 | ED MED RECONCILIATION SUMMARY ---
Patient: ROSEMARIE ORNELAS Medication Reconciliation Report [facility] VisitID: [id number] [address] [place] [address] 56y, F Registration Date/Time: 02/10/2017 Weight: 79.3 kg Height/Length: 61 in. BMI: 33.0 ALLERGIES: No Known Drug Allergy The patient's Home Medications are listed below: THE FOLLOWING MEDICATIONS NEED TO BE RECONCILED: Albuterol Sulfate HFA Inhalation Amphetamine-DEXTROAMPHETAMINE Oral Bactrim DS Oral 1 tablet, 2x a day Bisacodyl EC Oral Buprenorphine HCl-Naloxone HCl Sublingual Calcium & Magnesium Carbonates Oral Cholecalciferol Oral Estradiol Transdermal Keflex Oral 500 mg x 2, 2x a day Levothyroxine Sodium Oral MetFORMIN HCl Oral Minocycline HCl ER Oral Polyethylene Glycol 3350 Oral Venlafaxine HCl Oral The source(s) of the original Home Medication information: Not obtained. The following Medications were given to the patient in the Emergency Department: IV NS IV Fluids bolus 0, then 999 mL/hr, administered: 02/10/2017 3:45:00 PM Vancomycin [IVPB] IVPB bolus 0, then 2 gm 270 mL/hr, administered: 02/10/2017 5:23:00 PM The following Medications were prescribed to the patient: None.
--- NOTE | 2017-02-10 21:54 | ED DISCHARGE INSTRUCTIONS ---
Patient: ROSEMARIE ORNELAS General Instructions [facility] VisitID: [id number] [address] [place] [address] 56y, F Registration Date/Time: 02/10/2017 Cellulitis of the right lower leg and left lower leg. (Electronically signed by Andres Mora DO 02/10/2017 21:53)
--- NOTE | 2017-02-10 21:54 | ED MAR SUMMARY ---
..... Medication Administration Record [facility] [address] [place] [address] Patient: ROSEMARIE ORNELAS Visit ID: [id number] 56y, F Weight: 79.3 kg Height/Length: 61 in BMI: 33 ALLERGIES: No Known Drug Allergy Start 15:45 02/10/2017 Katrin Conklin R.N. Medication Administered: IV NS (SALINE), Dose: IV Fluids over 1 hour(s), Rate: 999 mL/hr, Dispensed: 1000 mL bag, Site: #1 left hand. Medication Ordered: IV NS with Normal Saline 1 Liter: initial bolus 1000 mL (1000 mL/hr), then 500 mL/hr for X2 (NOW). Start 17:23 02/10/2017 Katrin Conklin R.N. Medication Administered: VANCOMYCIN [IVPB], Dose: 2 gm IVPB over 2 hour(s), Rate: 270 mL/hr, Dispensed: 500 mL bag, Site: #1 left hand. Medication Ordered: Vancomycin IV 2 gm/500 mL (NOW).
[2017-02-10] MEDS ORDERED: METFORMIN HCL500 MG PO (22:08)
[2017-02-10] MEDS ORDERED: SYNTHROID88 MCG PO (22:09)
[2017-02-10] MEDS ORDERED: CYMBALTA60 MG PO (22:09)
[2017-02-10] MEDS ORDERED: ESTRADIOL (22:12)
[2017-02-10] MEDS ORDERED: SUBOXONE1 MI1 (22:13)
[2017-02-10] MEDS ORDERED: ADDERALL20 MG PO (22:16)
[2017-02-10 22:44] VITALS: BP 148/97
[2017-02-11 03:16] VITALS: BP 142/80
[2017-02-11 07:08] VITALS: BP 127/68
--- NOTE | 2017-02-11 07:52 | Progress Note ---
Subjective General Note Date: February 11, 2017 Admission Date: February 10, 2017 Hospital Day: 2 PCP: Levi Tena D.O. Status: Observation Advanced Directive: Full Code Room: 210-B Brief History: The patient is a 56-year-old white female with a significant past medical history of hepatitis C, fibromyalgia, diabetes mellitus type 2, degenerative joint disease, chronic fatigue syndrome, Lyme disease, who presented to [facility] emergency department on the day of admission secondary to complaints of red swollen tender lower extremities. [facility] ER evaluation was consistent with cellulitis versus venous stasis dermatitis involving the lower legs bilaterally. Secondary to the above, the patient was admitted by Alvaro Ren M.D. for further evaluation and treatment. For other history present illness, past medical history, family history, social history, review of systems, and admission physical examination please see the patient's history and physical examination and ER visit note in the patient's medical record. Subjective: The patient states status much improved. DC to home today Patient requests: None Medications and Allergies Medications Current Medications Sig/Jaimee Start time Last Medication Dose Route Stop Time Status Admin Buprenorphine HCl 8 MG BID 02/11 0900 AC SL Duloxetine HCl 120 MG DAILY 02/11 09 AC PO Levothyroxine Sodium 88 MCG 0600 02/11 09 AC PO Triamcinolone See Dose TID 02/10 2200 AC 02/11 Acetonide Insts (1) TOP 0522 Metformin HCl 500 MG BIDWC 02/10 2145 AC 02/10 PO 2231 Enoxaparin Sodium 40 MG QHS 02/10 2100 AC 02/10 SC 2204 Albuterol Sulfate 2.5 MG Q4H PRN 02/10 2015 AC IN Ondansetron HCl 4 MG Q6H PRN 02/10 2015 AC IV Polyethylene Glycol 17 GM DAILY 02/10 2015 AC 02/10 PO 2204 Sodium Chloride 1,000 ML ASDIRECTED 02/10 1730 AC 02/10 IV 2100 Dose Instructions: (1)Triamcinolone Acetonide: APPLY TO AFFECTED AREA TID Allergies Coded Allergies: NKA (02/10/17) Physical Exam Vital Signs / I&Os Vital Signs Date Time Temp Pulse Resp B/P Pulse O2 O2 Flow FiO2 Ox Delivery Rate 02/11 0708 98.1 101 20 127/68 94 Room Air 02/11 0316 98.2 101 20 142/80 94 Room Air 02/10 2244 97.7 89 16 148/97 100 Room Air 02/10 2100 Room Air 02/10 1839 Room Air 02/10 1834 98.2 100 16 120/70 95 I&O 02/11 0000 02/10 1600 02/10 0800 Intake Total 100 Output Total 1150 Balance -1050 General Appearance Alert, Oriented X3, Cooperative, No acute distress Lungs Clear to auscultation Cardiovascular Regular rate and rhythm, Normal S1 and S2 Abdomen Normal bowel sounds, Soft, No tenderness Extremities No cyanosis, No clubbing, edema much improved, erythema improved- lower extremities Neurological Cranial nerves intact, No lateralizing signs Psych/Mental Status Mental status normal, Mood normal LAB Results Laboratory Tests 02/11 02/10 02/10 02/10 0524 1733 1710 1545 Chemistry Plasma Sodium (136 - 145 mmol/L) 140 Plasma Potassium (3.5 - 5.1 mmol/L) 4.2 Plasma Chloride (98 - 107 mmol/L) 106 CO2 (Enzymatic) (21 - 32 mmol/L) 29 BUN (7 - 18 mg/dL) 11 Creatinine (0.6 - 1.3 mg/dL) 0.7 Est GFR ( Amer) (mL/min) >60 Est GFR (Non-Af Amer) (mL/min) >60 Glucose (70 - 110 mg/dL) 121 Plasma Calcium (8.5 - 10.1 mg/dL) 8.0 Procalcitonin (0 - 0.5 ng/mL) <0.5 TSH 3rd Generation (0.30 - 3.74 uIU/mL) 2.173 Hematology WBC (4.5 - 11.5 K/uL) 5.5 RBC (4.00 - 5.20 M/uL) 4.14 Hgb (12.0 - 16.0 gm/dL) 11.3 Hct (36.0 - 46.0 %) 33.9 MCV (80 - 100 fL) 82 MCH (26 - 34 pg) 27 RDW (11.6 - 14.8 %) 13.2 Neut % (Auto) (50 - 75 %) 46.4 Lymph % (Auto) (25 - 40 %) 40.1 [place] % (Auto) (3 - 14 %) 10.1 Eos % (Auto) (0 - 4 %) 2.9 Baso % (Auto) (0 - 2 %) 0.5 Plt Count, EDTA (150 - 400 K/uL) 232 PUBS MCHC (31 - 37 g/dL) 33 Toxicology Urine Opiates Screen (NEGATIVE) NEGATIVE Urine Methadone Screen (NEGATIVE) NEGATIVE Ur Barbiturates Screen (NEGATIVE) NEGATIVE U Amphetamin/Meth Scrn (NEGATIVE) NEGATIVE MDMA (Ecstasy) Screen (NEGATIVE) NEGATIVE U Benzodiazepines Scrn (NEGATIVE) NEGATIVE Urine Cocaine Screen (NEGATIVE) NEGATIVE U Cannabinoids Screen (NEGATIVE) NEGATIVE Urines Urine Color YELLOW Urine Appearance CLEAR Urine pH (5.0 - 8.0) 7.5 Ur Specific [place] (1.010 - 1.030) 1.015 Urine Protein (NEGATIVE) NEGATIVE Urine Ketones (NEGATIVE) NEGATIVE Urine Blood (NEGATIVE) NEGATIVE Urine Nitrite (NEGATIVE) NEGATIVE Urine Bilirubin (NEGATIVE) NEGATIVE Urine Urobilinogen (0.2 - 1.0 EU/dL) 0.2 Ur Leukocyte Esterase (NEGATIVE) NEGATIVE Urine RBC (0 - 1 rbc/hpf) NONE SEEN Urine WBC (0 - 1 wbc/hpf) 1-3 Ur Epithelial Cells (0 - 5 EPI/hpf) 5-10 Urine Bacteria (NONE SEEN) TRACE (<1+) Urine Glucose (NEGATIVE) NEGATIVE Urine Comment CULT NOT INDICATED 02/10 02/10 02/10 02/10 1545 1545 1545 1528 Chemistry Plasma Sodium (136 - 145 mmol/L) 135 Plasma Potassium (3.5 - 5.1 mmol/L) 4.1 Plasma Chloride (98 - 107 mmol/L) 100 CO2 (Enzymatic) (21 - 32 mmol/L) 28 BUN (7 - 18 mg/dL) 16 Creatinine (0.6 - 1.3 mg/dL) 0.8 Est GFR ( Amer) (mL/min) >60 Est GFR (Non-Af Amer) (mL/min) >60 Glucose (70 - 110 mg/dL) 117 Lactic Acid (0.4 - 2.0 mmol/L) 1.9 Plasma Calcium (8.5 - 10.1 mg/dL) 8.3 Plasma Magnesium (1.8 - 2.4 mg/dL) 2.0 Total Bilirubin (0.0 - 1.0 mg/dL) 0.4 AST (15 - 37 U/L) 76 ALT (12 - 78 U/L) 68 Alkaline Phosphatase (46 - 116 U/L) 80 Creatine Kinase (24 - 260 U/L) 149 Troponin (0.00 - 1.5 ng/mL) <0.05 B-Natriuretic Peptide (5 - 100 pg/ml) 5.6 Total Protein (6.4 - 8.2 g/dL) 7.1 Albumin (3.3 - 5.0 g/dL) 3.3 Amylase (25 - 115 U/L) 44 Cancelled Coagulation D-Dimer, Quantitative (0.27 - 0.52 ug/mLFEU) 0.95 Hematology WBC (4.5 - 11.5 K/uL) 5.9 RBC (4.00 - 5.20 M/uL) 4.43 Hgb (12.0 - 16.0 gm/dL) 12.1 Hct (36.0 - 46.0 %) 36.1 MCV (80 - 100 fL) 82 MCH (26 - 34 pg) 27 RDW (11.6 - 14.8 %) 13.2 Neut % (Auto) (50 - 75 %) 49.2 Lymph % (Auto) (25 - 40 %) 35.2 [place] % (Auto) (3 - 14 %) 12.1 Eos % (Auto) (0 - 4 %) 3.0 Baso % (Auto) (0 - 2 %) 0.5 Plt Count, EDTA (150 - 400 K/uL) 249 PUBS MCHC (31 - 37 g/dL) 34 Assessment and Plan Problem List 1. Venous stasis dermatitis Status Chronic Onset Date Unknown Plan -much improved -Continue compression stockings -Continue topical Corticosteroids -Discharged today Current status: Good, improved Anticipated discharge date: Today Anticipated discharge placement: home Patient care time: Time spent in chart review, patient interview, physical exam, CPOE, and care documentation: greater than 30 minutes Visit to patient today: 2 Complexity of care: Moderate For other recommendations regarding discharge diet, activity, followup, and discharge medications please see the patient's discharge instructions. Greater than 30 min. was spent in the patient's discharge preparation including discharge interview and physical examination, progress note, discharge instructions, and discharge summary E&M Codes Discharge: Observation - All/[id number]
[2017-02-11] MEDS ORDERED: CYMBALTA60 MG PO (08:10)
[2017-02-11] MEDS ORDERED: CLIMARA0.05 MG TOP (08:11)
[2017-02-11] MEDS ORDERED: METFORMIN HCL500 MG PO (08:13)
[2017-02-11] MEDS ORDERED: TRAZODONE HCL50 MG PO (08:14)
[2017-02-11] MEDS ORDERED: ARISTOCORT EQUI15 GM TOP (11:07)
--- NOTE | 2017-02-11 11:08 | Provider's Discharge Care Plan ---
Problem, Goal, Plan Problem List 1. Venous stasis dermatitis Goals: Improve disease control, Prevent disease progress Instructions: Follow up as directed, Take meds as directed, Apply WES wrap from foot to knee daily in am until fitted for compression stockings.
--- NOTE | 2017-02-11 11:12 | Discharge Summary ---
Discharge Summary Report Admit Date 02/10/17 Discharge Date 02/11/17 Admission Diagnosis 1. Cellulitis Discharge Diagnosis 1. Venous stasis dermatitis Brief History The patient is a 56-year-old white female with a significant past medical history of hepatitis C, fibromyalgia, diabetes mellitus type 2, degenerative joint disease, chronic fatigue syndrome, Lyme disease, who presented to [facility] emergency department on the day of admission secondary to complaints of red swollen tender lower extremities. [facility] ER evaluation was consistent with cellulitis versus venous stasis dermatitis involving the lower legs bilaterally. Secondary to the above, the patient was admitted by Alvaro Ren M.D. for further evaluation and treatment. For other history present illness, past medical history, family history, social history, review of systems, and admission physical examination please see the patient's history and physical examination and ER visit note in the patient's medical record. Hospital Course The following problems and their management were noted during the patient's hospitalization: 1. Venous stasis dermatitis The patient presented with findings of cellulitis versus venous stasis dermatitis. Findings were most consistent with venous stasis dermatitis. The patient was treated with topical corticosteroids and compression wraps. She will follow-up with her PCP for ongoing evaluation and treatment posthospitalization. Symptoms much improved at discharge. General Appearance Alert, Oriented X3, Cooperative, No acute distress Lungs Clear to auscultation, Normal air movement Cardiovascular Regular Rate, Normal S1, Normal S2, systolic murmur unchanged Abdomen Normal bowel sounds, Soft, No tenderness Skin Skin lower legs shows dramatically improved erythema overnight with use of triamcinolone cream/compression stockings Neurological Grossly normal Psych/Mental Status Mental status NL, Mood NL Lab/Imaging Laboratory Tests 02/11 02/10 02/10 02/10 0524 1733 1710 1545 Chemistry Plasma Sodium (136 - 145 mmol/L) 140 Plasma Potassium (3.5 - 5.1 mmol/L) 4.2 Plasma Chloride (98 - 107 mmol/L) 106 CO2 (Enzymatic) (21 - 32 mmol/L) 29 BUN (7 - 18 mg/dL) 11 Creatinine (0.6 - 1.3 mg/dL) 0.7 Est GFR ( Amer) (mL/min) >60 Est GFR (Non-Af Amer) (mL/min) >60 Glucose (70 - 110 mg/dL) 121 Plasma Calcium (8.5 - 10.1 mg/dL) 8.0 Procalcitonin (0 - 0.5 ng/mL) <0.5 TSH 3rd Generation (0.30 - 3.74 uIU/mL) 2.173 Hematology WBC (4.5 - 11.5 K/uL) 5.5 RBC (4.00 - 5.20 M/uL) 4.14 Hgb (12.0 - 16.0 gm/dL) 11.3 Hct (36.0 - 46.0 %) 33.9 MCV (80 - 100 fL) 82 MCH (26 - 34 pg) 27 RDW (11.6 - 14.8 %) 13.2 Neut % (Auto) (50 - 75 %) 46.4 Lymph % (Auto) (25 - 40 %) 40.1 [place] % (Auto) (3 - 14 %) 10.1 Eos % (Auto) (0 - 4 %) 2.9 Baso % (Auto) (0 - 2 %) 0.5 Plt Count, EDTA (150 - 400 K/uL) 232 PUBS MCHC (31 - 37 g/dL) 33 Toxicology Urine Opiates Screen (NEGATIVE) NEGATIVE Urine Methadone Screen (NEGATIVE) NEGATIVE Ur Barbiturates Screen (NEGATIVE) NEGATIVE U Amphetamin/Meth Scrn (NEGATIVE) NEGATIVE MDMA (Ecstasy) Screen (NEGATIVE) NEGATIVE U Benzodiazepines Scrn (NEGATIVE) NEGATIVE Urine Cocaine Screen (NEGATIVE) NEGATIVE U Cannabinoids Screen (NEGATIVE) NEGATIVE Urines Urine Color YELLOW Urine Appearance CLEAR Urine pH (5.0 - 8.0) 7.5 Ur Specific [place] (1.010 - 1.030) 1.015 Urine Protein (NEGATIVE) NEGATIVE Urine Ketones (NEGATIVE) NEGATIVE Urine Blood (NEGATIVE) NEGATIVE Urine Nitrite (NEGATIVE) NEGATIVE Urine Bilirubin (NEGATIVE) NEGATIVE Urine Urobilinogen (0.2 - 1.0 EU/dL) 0.2 Ur Leukocyte Esterase (NEGATIVE) NEGATIVE Urine RBC (0 - 1 rbc/hpf) NONE SEEN Urine WBC (0 - 1 wbc/hpf) 1-3 Ur Epithelial Cells (0 - 5 EPI/hpf) 5-10 Urine Bacteria (NONE SEEN) TRACE (<1+) Urine Glucose (NEGATIVE) NEGATIVE Urine Comment CULT NOT INDICATED 02/10 02/10 02/10 02/10 1545 1545 1545 1528 Chemistry Plasma Sodium (136 - 145 mmol/L) 135 Plasma Potassium (3.5 - 5.1 mmol/L) 4.1 Plasma Chloride (98 - 107 mmol/L) 100 CO2 (Enzymatic) (21 - 32 mmol/L) 28 BUN (7 - 18 mg/dL) 16 Creatinine (0.6 - 1.3 mg/dL) 0.8 Est GFR ( Amer) (mL/min) >60 Est GFR (Non-Af Amer) (mL/min) >60 Glucose (70 - 110 mg/dL) 117 Lactic Acid (0.4 - 2.0 mmol/L) 1.9 Plasma Calcium (8.5 - 10.1 mg/dL) 8.3 Plasma Magnesium (1.8 - 2.4 mg/dL) 2.0 Total Bilirubin (0.0 - 1.0 mg/dL) 0.4 AST (15 - 37 U/L) 76 ALT (12 - 78 U/L) 68 Alkaline Phosphatase (46 - 116 U/L) 80 Creatine Kinase (24 - 260 U/L) 149 Troponin (0.00 - 1.5 ng/mL) <0.05 B-Natriuretic Peptide (5 - 100 pg/ml) 5.6 Total Protein (6.4 - 8.2 g/dL) 7.1 Albumin (3.3 - 5.0 g/dL) 3.3 Amylase (25 - 115 U/L) 44 Cancelled Coagulation D-Dimer, Quantitative (0.27 - 0.52 ug/mLFEU) 0.95 Hematology WBC (4.5 - 11.5 K/uL) 5.9 RBC (4.00 - 5.20 M/uL) 4.43 Hgb (12.0 - 16.0 gm/dL) 12.1 Hct (36.0 - 46.0 %) 36.1 MCV (80 - 100 fL) 82 MCH (26 - 34 pg) 27 RDW (11.6 - 14.8 %) 13.2 Neut % (Auto) (50 - 75 %) 49.2 Lymph % (Auto) (25 - 40 %) 35.2 [place] % (Auto) (3 - 14 %) 12.1 Eos % (Auto) (0 - 4 %) 3.0 Baso % (Auto) (0 - 2 %) 0.5 Plt Count, EDTA (150 - 400 K/uL) 249 PUBS MCHC (31 - 37 g/dL) 34 Discharge Instructions/Meds For other recommendations regarding discharge diet, activity, followup, and discharge medications please see the patient's discharge instructions. Discharge condition: Good, improved Greater than 30 min. was spent in the patient's discharge preparation including discharge interview and physical examination, progress note, discharge instructions, and discharge summary The patient was interviewed and examined on the day of discharge.
[2017-02-11 12:16] VITALS: BP 147/60
== END 2017-02-11 14:13 | disposition home or self-care (01) ==
LOC: ED SRH 14:56 → ACUTE2 SRH 17:06 → TRANS SRH 17:06 → ACUTE2 SRH 18:22
PROVIDERS: ADMIT Emergency Medicine
DX: I87.2 Venous insufficiency (chronic) (peripheral) (principal); M79.7 Fibromyalgia; R53.82 Chronic fatigue, unspecified; B18.2 Chronic viral hepatitis C; E11.9 Type 2 diabetes mellitus without complications; A69.20 Lyme disease, unspecified; Z79.84 Long term (current) use of oral hypoglycemic drugs; E03.9 Hypothyroidism, unspecified; M19.90 Unspecified osteoarthritis, unspecified site
CPT/HCPCS: 29230; 29242; 29247; 29251; 29252; 90004; 90047; 90074; 90100; 90616; 91320; 91556; 92031; 92530; 92610; 92720; 92760; 92761; 92762; 92763; 92764; 92765; 92766; 92767; 93004; 93140; 95059